=== PATIENT | female | born 1950 | race Caucasian/White ===

== ENCOUNTER → 2018-04-25 | Day surgery (SDC) | payer MEDICARE ==
[2018-03-12 11:39] LABS: BASOPHILS % 0.8 % (0.0-1.0); EOSINOPHILS # (AUTO) 0.1 (0.0-0.4); EOSINOPHILS % 1.5 % (0.0-6.0); HEMATOCRIT 41.2 % (34.2-44.1); HEMOGLOBIN 13.4 g/dL (12.0-16.0); LYMPHOCYTES # (AUTO) 1.9 (1.0-3.2); LYMPHOCYTES % 36.1 % (18.0-39.1); MEAN CORPUSCULAR HGB CONC 32.5 g/dL (31-35); MEAN CORPUSCULAR VOLUME 92.4 fL (81-99); MONOCYTES # (AUTO) 0.6 (0.2-0.8); MONOCYTES % 10.7 % (4.4-11.3); NEUTROPHILS # (AUTO) 2.7 (2.1-6.9); NEUTROPHILS % 50.7 % (38.7-80.0); PLATELET COUNT 232 x10e3/uL (140-360); RED BLOOD COUNT 4.46 x10e6/uL (3.6-5.1); RED CELL DISTRIBUTION WIDTH 16.7 % (11.7-14.4)
[2018-04-23 14:40] LABS: BASOPHILS % 0.5 % (0.0-1.0); EOSINOPHILS # (AUTO) 0.1 (0.0-0.4); EOSINOPHILS % 1.3 % (0.0-6.0); HEMATOCRIT 38.9 % (34.2-44.1); HEMOGLOBIN 13.1 g/dL (12.0-16.0); LYMPHOCYTES # (AUTO) 1.8 (1.0-3.2); MEAN CORPUSCULAR HGB CONC 33.7 g/dL (31-35); MEAN CORPUSCULAR VOLUME 94.9 fL (81-99); MONOCYTES # (AUTO) 0.6 (0.2-0.8); MONOCYTES % 8.3 % (4.4-11.3); NEUTROPHILS # (AUTO) 4.9 (2.1-6.9); NEUTROPHILS % 65.5 % (38.7-80.0); PLATELET COUNT 250 x10e3/uL (140-360)
[~2018-04-25] MED LIST: ASPIR 8181 MG PO; B-12 PO; CYCLOBENZAPRINE5 MG PO; EPHEDRINE SULFATE INJ 50 MG/10 ML SYR ONE; FENTANYL CITRATE/PF 100MCG/2 ML INJ ONE; GLYCOPYRROLATE INJ 1MG/ 5 ML SYR ONE; LEXAPRO10 MG PO; LIDOCAINE HCL 2% LOCAL INJ 5 ML SDV VIAL INJ ONE; LYRICA50 MG PO; METOPROLOL SUCC25 MG PO; MIDAZOLAM HCL 2 MG/2 ML VIAL ONE; MULTIVITAMIN PO; NEXIUM40 MG PO; OMEPRAZOLE20 MG PO; PROLIA60 MG/1 ML INJ; PROPOFOL IV EMULSION 10 MG/ML 20 ML VIAL ONE; ZOLPIDEM TARTRA10 MG PO
--- OUTSIDE RECORDS SUMMARY | 2018-04-25 06:20 | XMS REPORT ---
Author Author Shania Stock Organization [employer] Address Unknown Phone Unavailable Care Team Providers Care Ct Scan Technologist Name Role Phone Shania Stock CP Unavailable Allergies, Adverse Reactions, Alerts Substance Reaction Event Type Leflunomide ABD pain Drug Allergy Hydrocodone-Acetaminophen Info Not Available Drug Allergy morphine Info Not Available Non Drug Allergy NSAIDS anaphylaxis Non Drug Allergy codiene Info Not Available Non Drug Allergy sulfa Info Not Available Non Drug Allergy Problems Problem Type Condition Code Onset Dates Condition Status Assessment Other chronic pain G89.29 Active Assessment Osteoarthritis of knees, bilateral M17.0 Active Assessment Low back pain M54.5 Active Problem GERD without esophagitis K21.9 Active Problem Rheumatoid arthritis of multiple sites without rheumatoid factor M06.09 Active Problem Osteoporosis M81.0 Active Assessment High risk medication use Z79.899 Active Assessment Osteoarthritis of multiple joints M15.9 Active Problem Rheumatoid arthritis 714.0 Active Assessment Rheumatoid arthritis of multiple sites without rheumatoid factor M06.09 Active Assessment Anemia, unspecified D64.9 Active Assessment ESR raised R70.0 Active Assessment GERD without esophagitis K21.9 Active Assessment Osteoporosis M81.0 Active Medications Medication Code System Code Instructions Start Date End Date Status Dosage Omeprazole [facility] 73592171448 20 MG Orally Once a day Active 1 capsule Tramadol-Acetaminophen [facility] 29785328443 37.5-325 MG Orally bid prn Active 1 tab(s) Flexeril [facility] 15896222927 10MG orally daily prn July 17, 2017 Active take 1 tablet 3 times a day Tylenol ND 51467147303 325 MG Orally every 6 hrs Active 1 tablet as needed Multi Vitamins NDC 0 Oral Active 1 tab Alendronate Sodium [facility] 60756546393 70 MG Orally Once a week Active 1 tablet Ambien [facility] 82345522039 10 MG Orally Once a day Active 1 tablet at bedtime Lexapro [facility] 03133023628 10 MG Orally Once a day Active 1 tablet Alendronate Sodium [facility] 96806951729 70 MG Active 1 TABLET ONCE A WEEK ORALLY 30 DAY(S) Lyrica [facility] 57938527996 100 MG Orally tid Active 1 capsule Leflunomide [facility] 46712737734 20 MG Orally Once a day Active 1 tablet N40-Yojatf [facility] 50784474775 1 MG Orally Active not defined Flomax [facility] 53528450750 0.4 MG Orally Once a day Active 1 tab(s) Vital Signs Date/Time: Jan 18, 2017 Height 65 in Blood Pressure Diastolic 77 mm Hg Blood Pressure Systolic 130 mm Hg Weight 237 lbs Results No Known Results Summary Purpose eClinicalWorks Submission
--- OUTSIDE RECORDS SUMMARY | 2018-04-25 06:20 | XMS REPORT ---
Author Author Shania Stock [facility] eClinical[employer] Address Unknown Phone Unavailable Care Team Providers Care Mexican Food Machine Tender Name Role Phone Shania Stock CP Unavailable Allergies No Known Allergies Problems Problem Type Condition Code Onset Dates Condition Status Problem GERD without esophagitis K21.9 Active Problem Rheumatoid arthritis of multiple sites without rheumatoid factor M06.09 Active Problem Osteoporosis M81.0 Active Assessment Rheumatoid arthritis of multiple sites without rheumatoid factor M06.09 Active Assessment Stiffness of right wrist joint M25.631 Active Problem Rheumatoid arthritis 714.0 Active Assessment Pain in right wrist M25.531 Active Medications Medication Code System Code Instructions Start Date End Date Status Dosage Tramadol-Acetaminophen [facility] 84128526823 37.5-325 MG Orally bid prn Active 1 tab(s) Alendronate Sodium [facility] 08620152648 70 MG Active 1 TABLET ONCE A WEEK ORALLY 30 DAY(S) Q53-Wlluea [facility] 10072151008 1 MG Orally Active not defined Lexapro ND 51844316489 10 MG Orally Once a day Active 1 tablet Tylenol ND 18080463438 325 MG Orally every 6 hrs Active 1 tablet as needed Leflunomide ND 87045334522 20 MG Orally Once a day Active 1 tablet Lyrica ND 62733666529 100 MG Orally tid Active 1 capsule Omeprazole ND 90260980145 20 MG Orally Once a day Active 1 capsule Ambien [facility] 12724277695 10 MG Orally Once a day Active 1 tablet at bedtime Flomax ND 46734167477 0.4 MG Orally Once a day Active 1 tab(s) Flexeril ND 51418675814 10MG orally daily prn July 17, 2017 Active take 1 tablet 3 times a day Alendronate Sodium ND 90125743022 70 MG Orally Once a week Active 1 tablet Multi Vitamins NDC 0 Oral Active 1 tab Vital Signs Date/Time: Feb 02, 2017 Height 65 in Blood Pressure Diastolic 77 mm Hg Blood Pressure Systolic 130 mm Hg Weight 237 lbs Results Name Result Date Reference Range Unit Abnormality Flag ESR (SED-RATE) ----ESR (SED-RATE) 48 [id number] <26 mm/hr H CBC W/DIFF, PLATELET CT. ----IMMATURE GRANULOCYTES 0.2 [id number] 0.0-1.6 % ----MCV 85.5 04951353 80.0-100.0 fL ----HCT 32.9 05614775 34.5-46.5 % L ----BASOS 0.7 61223307 0.0-2.0 % ----MCHC 32.2 [id number] 29.0-35.0 gm/dL ----EOS 2.0 33176401 0.0-8.0 % ----MCH 27.5 [id number] 25.0-34.1 pg ----MONOS 11.6 56648311 0.0-13.0 % ----WBC 4.04 [id number] 3.66-11.99 x10(3)/uL ----MPV 10.5 76561860 8.2-11.9 fL ----HGB 10.6 63017121 11.5-15.6 gm/dL L ----PLATELET COUNT 282 49203395 144-400 x10(3)/uL ----RBC 3.85 48580193 3.60-5.50 x10(6)/uL ----LYMPHS 39.6 76409972 12.0-48.0 % ----RDW 14.6 09682364 10.9-16.9 % ----POLYS 45.9 18576823 36.0-78.0 % COMPREHENSIVE METABOLIC ----Alk Phos 72 44177330 40-156 U/L ----Bilirubin, Total 0.8 67250129 <1.2 mg/dL ----ALT 20 [id number] <33 U/L ----AST 30 92308086 <32 U/L ----BUN 11 54824390 8-23 mg/dL ----CO2 25 43770087 22-29 mmol/L ----Glucose 100 24013555 70-99 mg/dL H ----Chloride 104 [id number] 96-108 mmol/L ----Potassium 4.0 06056864 3.5-5.5 mmol/L ----Sodium 142 20170202 135-147 mmol/L ----e-GFR 84 75947556 >or=60 mL/min ----Creatinine 0.74 20170202 0.49-1.02 mg/dL ----Calcium 9.8 05174759 8.6-10.4 mg/dL ----e-GFR, 97 20170202 >or=60 mL/min ----Total Protein 6.9 01691613 5.9-8.4 g/dL ----Albumin 4.1 47330843 3.5-5.2 g/dL ----Globulin 2.8 [id number] 1.7-3.7 g/dL ----A/G Ratio 1.5 20170202 1.1-2.9 CRP (C-REACTIVE PROTEIN), SERUM ----CRP 0.3 [id number] <0.5 mg/dL Summary Purpose eClinicalWorks Submission
--- OUTSIDE RECORDS SUMMARY | 2018-04-25 06:20 | XMS REPORT ---
Author Author Shania Stock Organization [employer] Address Unknown Phone Unavailable Care Team Providers Care Bakery Machine Mechanic Supervisor Name Role Phone Shania Stock CP Unavailable Allergies No Known Allergies Problems Problem Type Condition Code Onset Dates Condition Status Problem GERD without esophagitis K21.9 Active Problem Rheumatoid arthritis of multiple sites without rheumatoid factor M06.09 Active Problem Osteoporosis M81.0 Active Assessment Stiffness of left wrist joint M25.632 Active Assessment Swelling of joint, wrist, left M25.432 Active Problem Rheumatoid arthritis 714.0 Active Assessment Pain in left wrist M25.532 Active Medications No Known Medications Vital Signs Date/Time: Feb 08, 2017 Height 65 in Blood Pressure Diastolic 77 mm Hg Blood Pressure Systolic 130 mm Hg Weight 237 lbs Results No Known Results Summary Purpose eClinicalWorks Submission
--- OUTSIDE RECORDS SUMMARY | 2018-04-25 06:20 | XMS REPORT ---
Author Author Shania Stock Organization [employer] Address Unknown Phone Unavailable Care Team Providers Care In Tube Conversion Technician Name Role Phone Shania Stock CP Unavailable Allergies, Adverse Reactions, Alerts Substance Reaction Event Type Lexapro tremors Drug Allergy Leflunomide ABD pain Drug Allergy Hydrocodone-Acetaminophen Info [...] Instructions Start Date End Date Status Dosage Lyrica [facility] [place] [place] [address]-54 100 MG Orally bid Active 1 capsule Omeprazole [facility] [place] [address]-27 20 MG Orally Once a day Active 1 capsule Tylenol [facility] [place] [address]-16 325 MG Orally every 6 hrs Active 1 tablet as needed Flomax [facility] [place] [address]-08 0.4 MG Orally Once a day Active 1 tab(s) Flexeril [facility] [place] [place] 00245611773 10MG orally daily prn Active take 1 tablet 3 times a day Leflunomide [facility] [place] [address]-11 20 MG Orally Once a day Active 1 tablet Multi Vitamins NDC 0 Oral Active 1 tab Ambien [facility] [place] [address]-39 10 MG Orally Once a day Active 1 tablet at bedtime Alendronate Sodium [facility] [place] [place] 01529376517 70 Orally Once a week Active 1 tablet Tramadol-Acetaminophen [facility] [place] [address]-19 37.5-325 MG Orally bid prn Active 1 tab(s) W33-Cvigyz [facility] [place] [address] 1 MG Orally Active not defined Alendronate Sodium [facility] [place] [address]-58 70 MG Orally Once a week Feb 13, 2017 Active 1 tablet Alendronate Sodium [facility] [place] 02338253919 70 MG Orally Once a week Active 1 tablet Vital Signs Date/Time: August 17, 2016 Height 65 in Blood Pressure Diastolic 74 mm Hg Blood Pressure Systolic 131 mm Hg Weight 232 lbs Results No Known Results Summary Purpose eClinicalWorks Submission
--- OUTSIDE RECORDS SUMMARY | 2018-04-25 06:20 | XMS REPORT ---
Author Author Shania Stock Organization [employer] Address Unknown Phone Unavailable Care Team Providers Care Metal Flooring Installer Name Role Phone Shania Stock CP Unavailable [...] Start Date End Date Status Dosage Lyrica [facility] 93726156012 100 MG Orally tid Active 1 capsule Leflunomide [facility] 42681709347 20 MG Orally Once a day Active 1 tablet Lexapro [facility] 16391487461 10 MG Orally Once a day Active 1 tablet Omeprazole [facility] 94173012061 20 MG Orally Once a day Active 1 capsule Alendronate Sodium [facility] 77906618350 70 MG Active 1 TABLET ONCE A WEEK ORALLY 30 DAY(S) Flomax [facility] 85722691553 0.4 MG Orally Once a day Active 1 tab(s) Lyrica [facility] 13483774829 100 Active TAKE ONE CAPSULE BY MOUTH THREE TIMES DAILY Multi Vitamins NDC 0 Oral Active 1 tab Ambien [facility] 49854928087 10 MG Orally Once a day Active 1 tablet at bedtime V58-Sypwoi [facility] 14918736424 1 MG Orally Active not defined Alendronate Sodium [facility] 24597332466 70 MG Orally Once a week Active 1 tablet Flexeril [facility] 07885092509 10MG Active TAKE 1 TABLET 3 TIMES A DAY DAILY PRN ORALLY 90 DAYS Tramadol-Acetaminophen [facility] 73185241418 37.5-325 MG Orally bid prn Mar 23, 2018 Active 1 tab(s) Flexeril [facility] 25474208011 10MG orally daily prn Active take 1 tablet 3 times a day Tylenol [facility] 17708816994 325 MG Orally every 6 hrs Active 1 tablet as needed Vital Signs Date/Time: September 24, 2017 Height 65 in Blood Pressure Diastolic 80 mm Hg Blood Pressure Systolic 154 mm Hg Weight 243.0 lbs Results No Known Results Summary Purpose eClinicalWorks Submission
--- OUTSIDE RECORDS SUMMARY | 2018-04-25 06:20 | XMS REPORT ---
Author Author Shania Stock Organization [employer] Address Unknown Phone Unavailable Care Team Providers Care Pari Mutuel Clerk Name Role Phone Shania Stock CP Unavailable [...] Instructions Start Date End Date Status Dosage Flexeril [facility] 00222569688 10MG Active TAKE 1 TABLET 3 TIMES A DAY DAILY PRN ORALLY 90 DAYS Multi Vitamins NDC 0 Oral Active 1 tab I14-Jioqip [facility] 85064417478 1 MG Orally Active not defined Flomax [facility] 96784837537 0.4 MG Orally Once a day Active 1 tab(s) Alendronate Sodium [facility] 76649684157 70 MG Active 1 TABLET ONCE A WEEK ORALLY 30 DAY(S) Lyrica [facility] 47724830041 100 MG Orally tid Active 1 capsule Omeprazole [facility] 13734175976 20 MG Orally Once a day Active 1 capsule Leflunomide [facility] 73257080290 20 MG Orally Once a day Active 1 tablet Tylenol [facility] 02292065755 325 MG Orally every 6 hrs Active 1 tablet as needed Ambien [facility] 98220493956 10 MG Orally Once a day Active 1 tablet at bedtime Alendronate Sodium [facility] 13512409279 70 MG Orally Once a week Active 1 tablet Flexeril [facility] 49739272493 10MG orally daily prn Active take 1 tablet 3 times a day Lexapro [facility] 99615008782 10 MG Orally Once a day Active 1 tablet Tramadol-Acetaminophen [facility] 70592433339 37.5-325 MG Orally bid prn Active 1 tab(s) Vital Signs Date/Time: May 24, 2017 Height 65 in Blood Pressure Diastolic 68 mm Hg Blood Pressure Systolic 125 mm Hg Weight 240 lbs Results No Known Results Summary Purpose eClinicalWorks Submission
--- OUTSIDE RECORDS SUMMARY | 2018-04-25 06:20 | XMS REPORT ---
Author Author Shania Stock Organization [employer] Address Unknown Phone Unavailable Care Team Providers Care Electronic Scale Assembler And Tester Name Role Phone Shania Stock CP Unavailable Allergies No Known Allergies Problems Problem Type Condition Code Onset Dates Condition Status Problem GERD without esophagitis K21.9 Active Problem Rheumatoid arthritis of multiple sites without rheumatoid factor M06.09 Active Problem Osteoporosis M81.0 Active Problem Rheumatoid arthritis 714.0 Active Assessment Low back pain M54.5 Active Medications Medication Code System Code Instructions Start Date End Date Status Dosage Flexeril ND 55820036763 10MG orally daily prn Inactive take 1 tablet 3 times a day Tizanidine HCl NDC 28208898165 4 MG Orally bedtime Nov 10, 2017 Mar 10, 2018 Active 1 tablet as needed Flexeril ND 12803285481 10MG Inactive TAKE 1 TABLET 3 TIMES A DAY DAILY PRN ORALLY 90 DAYS Results No Known Results Summary Purpose eClinicalWorks Submission
--- OUTSIDE RECORDS SUMMARY | 2018-04-25 06:20 | XMS REPORT ---
Author Author Shania Stock Organization [employer] Address Unknown Phone Unavailable Care Team Providers Care Real Estate Office Manager Name Role Phone Shania Stock CP Unavailable Allergies No Known Allergies Problems Problem Type Condition Code Onset Dates Condition Status Problem GERD without esophagitis K21.9 Active Problem Rheumatoid arthritis of multiple sites without rheumatoid factor M06.09 Active Problem Osteoporosis M81.0 Active Problem Rheumatoid arthritis 714.0 Active Medications No Known Medications Results No Known Results Summary Purpose eClinicalWorks Submission
--- OUTSIDE RECORDS SUMMARY | 2018-04-25 06:20 | XMS REPORT ---
Author Author Shania Stock Organization [employer] Address Unknown Phone Unavailable Care Team Providers Care Bias Cutter Name Role Phone Shania Stock CP Unavailable [...] Instructions Start Date End Date Status Dosage Alendronate Sodium [facility] 55821820884 70 Orally Once a week Active 1 tablet Leflunomide [facility] [address]-23 20 MG Orally Once a day Active 1 tablet Tylenol [facility] [address]-21 325 MG Orally every 6 hrs Active 1 tablet as needed F50-Jrqgcp [facility] [address] 1 MG Orally Active not defined Tramadol-Acetaminophen [facility] [address]-07 37.5-325 MG Orally bid prn Active 1 tab(s) Flomax [facility] [address]-99 0.4 MG Orally Once a day Active 1 tab(s) Omeprazole [facility] [address]-66 20 MG Orally Once a day Active 1 capsule Alendronate Sodium [facility] 48747600740 70 MG Orally Once a week Active 1 tablet Flexeril [facility] 29169616839 10MG orally daily prn Active take 1 tablet 3 times a day Alendronate Sodium [facility] [address]-93 70 MG Orally Once a week Active 1 tablet Multi Vitamins ND 0 Oral Active 1 tab Lyrica [facility] [address]-09 100 MG Orally bid Active 1 capsule Ambien [facility] [address]-23 10 MG Orally Once a day Active 1 tablet at bedtime Vital Signs Date/Time: September 14, 2016 Height 65 in Blood Pressure Diastolic 74 mm Hg Blood Pressure Systolic 134 mm Hg Weight 233 lbs Results No Known Results Summary Purpose eClinicalWorks Submission
--- OUTSIDE RECORDS SUMMARY | 2018-04-25 06:20 | XMS REPORT | Continuity of Care Document ---
Author Author [facility] Interface Address Unknown Phone Unavailable Problems Problem Status Onset Date Classification Date Reported Comments Source Other chronic pain Active Diagnosis 09/25/2017 Shania Najam Osteoarthritis of knees, bilateral Active Diagnosis 09/25/2017 Shania Najam Low back pain Active Diagnosis 11/11/2017 Shania Najam GERD without esophagitis Active Problem 11/20/2017 Shania Najam Rheumatoid arthritis of multiple sites without rheumatoid factor Active Problem 11/20/2017 Shania Najam Osteoporosis Active Problem 11/20/2017 Shania Najam High risk medication use Active Diagnosis 09/25/2017 Shania Najam Osteoarthritis of multiple joints Active Diagnosis 09/25/2017 Shania Najam Rheumatoid arthritis Active Problem 11/20/2017 Shania Najam Anemia, unspecified Active Diagnosis 09/25/2017 Shania Najam ESR raised Active Diagnosis 09/25/2017 Shania Najam Stiffness of left wrist joint Active Diagnosis 02/19/2017 Shania Najam Swelling of joint, wrist, left Active Diagnosis 02/19/2017 Shania Najam Pain in left wrist Active Diagnosis 02/19/2017 Shania Najam Stiffness of right wrist joint Active Diagnosis 02/07/2017 Shania Najam Pain in right wrist Active Diagnosis 02/07/2017 Shania Najam Contact 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 to tuberculosis Active Problem 04/06/2014 Shania Najam Swelling of limb Active Diagnosis 02/18/2014 Shania Najam Pain in joint, hand Active Diagnosis 10/22/2014 Shania Najam Stiffness of joint, not elsewhere classified, hand Active Diagnosis 02/18/2014 Shania Nafeleciam monitorring of highrisk meds Active Diagnosis 10/22/2014 Shania Najam Unspecified visual disturbance Active Diagnosis 09/17/2014 Shania Najam Counseling NOS Active Diagnosis 10/22/2014 Shania Najam myalgia and myositis Active Diagnosis 10/22/2014 Shania Najam Generalized osteoarthrosis, involving multiple sites Active Diagnosis 10/22/2014 Shania Stock Asymptomatic postmenopausal status (natural) Active Diagnosis 10/22/2014 Shania Stock Lumbago Active Diagnosis 10/22/2014 Shania Stock Hand pain, right Active Diagnosis 05/05/2015 Shania Stock Hand pain, left Active Diagnosis 05/05/2015 Shania Stock Chronic pain Active Diagnosis 03/02/2015 Shania Stock Pain, joint, hand, right Active Diagnosis 03/02/2015 Shania Stock Renal and ureteric calculus Active Diagnosis 03/02/2015 Shania Stock Screening for osteoporosis Active Diagnosis 03/02/2015 Shania Stock Pain, joint, hand, left Active Diagnosis 03/02/2015 Shania Stock Mouth sores Active Diagnosis 09/14/2015 Shania Stock Menopausal and perimenopausal disorder Active Diagnosis 02/04/2016 Shania Brunildagenaro Medications Medication Details Route Status Patient Instructions Ordering Provider Order Date Source Tramadol-Acetaminophen 1 tab(s) Orally Active 37.5-325 MG Orally bid prn [facility] 03/23/2018 Shania Stock Tizanidine HCl 1 tablet as needed Orally Active 4 MG Orally bedtime [facility] 11/10/2017 Shania Stock Flexeril take 1 tablet 3 times a day orally Active 10MG orally daily prn [facility] 07/17/2017 Shania Stock Alendronate Sodium 1 tablet Orally Active 70 MG Orally Once a week [facility] 02/13/2017 Shania Stock Flexeril take 1 tablet 3 times a day orally Active 10MG orally daily prn [facility] 05/29/2016 Shania Stock Tramadol-Acetaminophen 1 tab(s) Orally Active 37.5-325 MG Orally bid prn [facility] 05/29/2016 Shania Stock Alendronate Sodium 1 tablet Orally Active 70 MG Orally Once a week [facility] 03/22/2016 Shania Stock Leflunomide 1 tablet Orally Active 20 MG Orally Once a day [facility] 02/03/2016 Shania Stock Orencia 1 ml Subcutaneous No Longer Active 125 MG/ML Subcutaneous once weekly [facility] 02/03/2016 Shania Stock Orencia 1 ml Subcutaneous Active 125 MG/ML Subcutaneous once weekly [facility] 12/04/2015 Shania Najam Flexeril TAKE 1 TABLET 3 TIMES A DAY orally Active 10MG orally daily prn [facility] 11/03/2015 Shania Nagenaro Nystatin 2 teaspoons Mouth/Throat Active 181320 UNIT/ML Mouth/Throat Three times a day [facility] 08/31/2015 Shania Najaciarra Flexeril TAKE 1 TABLET 3 TIMES A DAY orally Active 10MG orally daily prn [facility] 08/04/2015 Shania Nagenaro Orencia 1 ml Subcutaneous Active 125 MG/ML Subcutaneous once weekly [facility] 05/04/2015 Shania Nagenaro Plaquenil 2 tabs Orally No Longer Active 200 MG Orally Once a day [facility] 11/21/2014 Shania Najam Flexeril 1 tab(s) orally Active 10 mg orally tid [facility] 11/21/2014 Shania Najam Tramadol-Acetaminophen 1 tab(s) Orally Active 37.5-325 MG Orally every 8 hrs as needed [facility] 09/16/2014 Shania Najam Lyrica 1 capsule Orally Active 50 MG Orally Twice a day [facility] 09/16/2014 Shania Nafeleciam Folic Acid 1 tablet Orally No Longer Active 1 mg Orally Once a day [facility] 03/02/2014 Shania Najam Lyrica 1 capsule Orally Active 100 MG Orally bid Naja Shania Najam Omeprazole 1 capsule Orally Active 20 MG Orally Once a day Najam Shania Najam Tylenol 1 tablet as needed Orally Active 325 MG [facility] Flomax 1 tab(s) Orally Active 0.4 MG Orally Once a day Naja Shania Najam Flexeril take 1 tablet 3 times a day orally Active 10MG orally daily prn Najam Shania Najam Leflunomide 1 tablet Orally Active 20 MG Orally Once a day Najam Shania Najam Multi Vitamins 1 tab Oral Active Oral Najam Shania Najam Ambien 1 tablet at bedtime Orally Active 10 MG Orally Once a day Najam Shania Najam Alendronate Sodium 1 tablet Orally Active 70 Orally Once a week Najam Shania Najam Tramadol-Acetaminophen 1 tab(s) Orally Active 37.5-325 MG Orally bid prn Najam Shania Najam [id number] not defined Orally Active 1 MG Orally Najam Shania Najam Alendronate Sodium 1 TABLET ONCE A WEEK ORALLY 30 DAY(S) NA Active 70 MG Najam Shania Najam Omeprazole 1 capsule Orally Active 20 MG Orally Once a day Najam Shania Najam Tramadol-Acetaminophen 1 tab(s) Orally Active 37.5-325 MG Orally bid prn Najam Shania Najam Tylenol 1 tablet as needed Orally Active 325 MG Orally every 6 hrs Najam Shania Najam Alendronate Sodium 1 tablet Orally Active 70 MG Orally Once a week Najam Shania Najam Ambien 1 tablet at bedtime Orally Active 10 MG Orally Once a day Najam Shania Najam Lexapro 1 tablet Orally Active 10 MG Orally Once a day Najam Shania Najam Lyrica 1 capsule Orally Active 100 MG Orally tid Najam Shania Najam Leflunomide 1 tablet Orally Active 20 MG Orally Once a day Najam Shania Najam [id number] not defined Orally Active 1 MG Orally Najam Shania Najam Flomax 1 tab(s) Orally Active 0.4 MG Orally Once a day Najam Shania Najam Flexeril TAKE 1 TABLET 3 TIMES A DAY DAILY PRN ORALLY 90 DAYS NA Active 10MG Najam Shania Najam Alendronate Sodium 1 tablet Orally Active 70 MG Orally Once a week Najam Shania Najam Lyrica TAKE ONE CAPSULE BY MOUTH THREE TIMES DAILY NA Active 100 Najam Shania Najam Methotrexate Sodium INJECT 0.4 ML UNDER THE SKIN ONCE A WEEK NA No Longer Active 25 Najam Shania Najam Ambien 1 tablet at bedtime Orally Active 5 MG Orally Once a day Najam Shania Najam Methotrexate Sodium (PF) 0.4 ml subcutaneously No Longer Active 25 MG/ML subcutaneously once weekly Najam Shania Najam [employer] Unknown Orally Active Orally Najam Shania Najam Viactiv 1 tablet with a meal Orally Active 500-500-40 MG-UNT-MCG Orally Once a day Najam Shania Najam Lexapro 1 tab(s) Orally Active 20 mg Orally Once a day Najam Shania Najam Multi Vitamins 1 tab Oral Active Oral Najam Shania Najam Tramadol HCl 1 tablet as needed Orally No Longer Active 50 MG Orally every 6 hrs Nafeleciam Shania Nafeleciam Flexeril Unknown NA Active Najam Shania Nafeleciam Plaquenil 1 tablet with food or milk Orally Active 200 MG Orally Once a day Najam Shania Najam Lyrica 1 capsule Orally Active 50 MG Orally daily Nafeleciam Shania Nafeleciam Tramadol-Acetaminophen 1 tab(s) Orally Active 37.5-325 MG Orally every 8 hrs as needed Najam Shania Najam Plaquenil TAKE 2 TABLETS ONCE DAILY NA Active 200MG Najam Shania Najam Lyrica TAKE 1 CAPSULE BY MOUTH DAILY orally Active 50 orally daily Najam Shania Najam Orencia 1 ml Subcutaneous Active 125 MG/ML Subcutaneous once weekly Najam Shania Najam Orencia INJECT 1 ML (125 MG) SUBCUTANEOUSLY ONCE A WEEK. REFRIGERATE. ALLOW SYRINGE TO WARM TO ROOM TEMPERATURE FOR 30 MIN PRIOR TO INJECTION. NA Active 125 MG/ML Najam Shania Najam Allergies, Adverse Reactions, Alerts Substance Category Reaction Severity Reaction type Status Date Reported Comments Source Lexapro Adverse Reaction tremors Adverse Reaction Active 09/14/2016 Shania Najam Leflunomide Adverse Reaction ABD pain Adverse Reaction Active 09/24/2017 Shania Najam Hydrocodone-Acetaminophen Adverse Reaction Info Not Available Adverse Reaction Active 09/24/2017 Shania Najam morphine Adverse Reaction Info Not Available Adverse Reaction Active 09/24/2017 Shania Najam NSAIDS Adverse Reaction anaphylaxis Adverse Reaction Active 09/24/2017 Shania Najam codiene Adverse Reaction Info Not Available Adverse Reaction Active 09/24/2017 Shania Najam sulfa Adverse Reaction Info Not Available Adverse Reaction Active 09/24/2017 Shania Najam Immunizations Immunization Date Given Site Status Last Updated Comments Source Results Order Name Results Value Reference Range Date Interpretation Comments Source Vital Signs Vital Sign Value Date Comments Source Height 65 09/24/2017 Shania Najam Diastolic (mm Hg) 80 09/24/2017 Shania Najam Systolic (mm Hg) 154 09/24/2017 Shania Najam Weight 243.0 09/24/2017 Shania Najam Height 65 05/24/2017 Shania Najam Diastolic (mm Hg) 68 05/24/2017 Shania Najam Systolic (mm Hg) 125 05/24/2017 Shania Najam Weight 240 05/24/2017 Shania Najam Height 65 02/08/2017 Shania Najam Diastolic (mm Hg) 77 02/08/2017 Shania Najam Systolic (mm Hg) 130 02/08/2017 Shania Najam Weight 237 02/08/2017 Shania Najam Height 65 02/02/2017 Shania Najam Diastolic (mm Hg) 77 02/02/2017 Shania Najam Systolic (mm Hg) 130 02/02/2017 Shania Najam Weight 237 02/02/2017 Shania Najam Height 65 01/18/2017 Shania Najam Diastolic (mm Hg) 77 01/18/2017 Shania Najam Systolic (mm Hg) 130 01/18/2017 Shania Najam Weight 237 01/18/2017 Shania Najam Height 65 09/14/2016 Shania Najam Diastolic (mm Hg) 74 09/14/2016 Shania Najam Systolic (mm Hg) 134 09/14/2016 Shania Najam Weight 233 09/14/2016 Shania Najam Height 65 08/17/2016 Shania Najam Diastolic (mm Hg) 74 08/17/2016 Shania Najam Systolic (mm Hg) 131 08/17/2016 Shania Najam Weight 232 08/17/2016 Shania Najam Height 65 04/20/2016 Shania Najam Diastolic (mm Hg) 82 04/20/2016 Shania Najam Systolic (mm Hg) 134 04/20/2016 Shania Najam Weight 236.4 04/20/2016 Shania Najam Height 65 03/22/2016 Shania Najam Diastolic (mm Hg) 73 03/22/2016 Shania Najam Systolic (mm Hg) 112 03/22/2016 Shania Najam Weight 235.8 03/22/2016 Shania Najam Weight 241.6 02/03/2016 Shania Najam Height 65 02/03/2016 Shania Najam Height 65 12/01/2015 Shania Najam Diastolic (mm Hg) 77 12/01/2015 Shania Najam Systolic (mm Hg) 123 12/01/2015 Shania Najam Weight 239.8 12/01/2015 Shania Najam Height 65 08/31/2015 Shania Najam Diastolic (mm Hg) 83 08/31/2015 Shanai Najam Systolic (mm Hg) 141 08/31/2015 Shania Najam Weight 237.4 08/31/2015 Shania Najam Height 65 06/01/2015 Shania Najam Diastolic (mm Hg) 80 06/01/2015 Shania Najam Systolic (mm Hg) 131 06/01/2015 Shania Najam Weight 234.2 06/01/2015 Shania Najam Height 65 05/04/2015 Shania Najam Diastolic (mm Hg) 81 05/04/2015 Shania Najam Systolic (mm Hg) 149 05/04/2015 Shania Najam Weight 232.8 05/04/2015 Shania Najam Height 65 03/01/2015 Shania Najam Diastolic (mm Hg) 78 03/01/2015 Shania Najam Systolic (mm Hg) 125 03/01/2015 Shania Najam Weight 232.8 03/01/2015 Shania Najam Height 65 10/21/2014 Shania Najam Diastolic (mm Hg) 73 10/21/2014 Shania Najam Systolic (mm Hg) 136 10/21/2014 Shania Najam Weight 242.2 10/21/2014 Shania Najam Height 65 09/16/2014 Shania Najam Diastolic (mm Hg) 76 09/16/2014 Shania Najam Systolic (mm Hg) 134 09/16/2014 Shania Najam Weight 240 09/16/2014 Shania Najam Height 65 04/02/2014 Shania Najam Diastolic (mm Hg) 83 04/02/2014 Shania Najam Systolic (mm Hg) 148 04/02/2014 Shania Najam Weight 245 04/02/2014 Shania Najam Height 65 03/02/2014 Shania Najam Diastolic (mm Hg) 75 03/02/2014 Shania Najam Systolic (mm Hg) 139 03/02/2014 Shania Najam Weight 250 03/02/2014 Shania Najam Height 65 02/03/2014 Shania Najam Diastolic (mm Hg) 69 02/03/2014 Shania Najam Systolic (mm Hg) 141 02/03/2014 Shania Najam Weight 248 02/03/2014 Shania Stock Encounters Location Location Details Encounter Type Encounter Number Reason For Visit Attending Provider ADM Date DC Date Status Source [facility] [id number] 02/03/2014 02/03/2014 [facility] [id number] 02/03/2014 02/03/2014 [facility] RA [id number] 02/03/2014 02/03/2014 [facility] RA [id number] 02/03/2014 02/03/2014 [facility] RA [id number] 02/03/2014 02/03/2014 [facility] RA [id number] 02/03/2014 02/03/2014 [facility] RA [id number] 02/03/2014 02/03/2014 [facility] RA [id number] 02/03/2014 02/03/2014 [facility] RA [id number] 02/03/2014 02/03/2014 [facility] RA [id number] 02/03/2014 02/03/2014 [facility] RA [id number] 02/03/2014 02/03/2014 [facility] RA [id number] 02/03/2014 02/03/2014 [facility] RA [id number] 02/03/2014 02/03/2014 [facility] RA [id number] 02/03/2014 02/03/2014 [facility] RA [id number] 02/03/2014 02/03/2014 [facility] [id number] 02/03/2014 02/03/2014 [facility] RA [id number] 02/03/2014 02/03/2014 [facility] RA [id number] 02/03/2014 02/03/2014 [facility] RA [id number] 02/03/2014 02/03/2014 [facility] RA [id number] 02/03/2014 02/03/2014 [facility] RA [id number] 02/03/2014 02/03/2014 [facility] RA [id number] 02/03/2014 02/03/2014 [facility] RA [id number] 02/03/2014 02/03/2014 [facility] [id number] 02/03/2014 02/03/2014 [facility] RA [id number] 02/03/2014 02/03/2014 [facility] RA [id number] 02/03/2014 02/03/2014 [facility] RA [id number] 02/03/2014 02/03/2014 [facility] Left Wrist MRI [id number] 02/11/2014 02/11/2014 [facility] Left Wrist MRI [id number] 02/11/2014 02/11/2014 [facility] Left Wrist MRI [id number] 02/11/2014 02/11/2014 [facility] Left Wrist MRI [id number] 02/11/2014 02/11/2014 [facility] Left Wrist MRI [id number] 02/11/2014 02/11/2014 [facility] Left Wrist MRI [id number] 02/11/2014 02/11/2014 [facility] Left Wrist MRI [id number] 02/11/2014 02/11/2014 [facility] Left Wrist MRI [id number] 02/11/2014 02/11/2014 [facility] Left Wrist MRI [id number] 02/11/2014 02/11/2014 [facility] Left Wrist MRI [id number] 02/11/2014 02/11/2014 [facility] Left Wrist MRI [id number] 02/11/2014 02/11/2014 [facility] Left Wrist MRI [id number] 02/11/2014 02/11/2014 [facility] Left Wrist MRI [id number] 02/11/2014 02/11/2014 [facility] Left Wrist MRI [id number] 02/11/2014 02/11/2014 [facility] Left Wrist MRI [id number] 02/11/2014 02/11/2014 [facility] Left Wrist MRI [id number] 02/11/2014 02/11/2014 [facility] Left Wrist MRI [id number] 02/11/2014 02/11/2014 [facility] Left Wrist MRI [id number] 02/11/2014 02/11/2014 [facility] Left Wrist MRI [id number] 02/11/2014 02/11/2014 [facility] Left Wrist MRI [id number] 02/11/2014 02/11/2014 [facility] Left Wrist MRI [id number] 02/11/2014 02/11/2014 [facility] Left Wrist MRI [id number] 02/11/2014 02/11/2014 [facility] Left Wrist MRI [id number] 02/11/2014 02/11/2014 [facility] Left Wrist MRI [id number] 02/11/2014 02/11/2014 [facility] Left Wrist MRI [id number] 02/11/2014 02/11/2014 [facility] Left Wrist MRI [id number] 02/11/2014 02/11/2014 [facility] Left Wrist MRI [id number] 02/11/2014 02/11/2014 [facility] Right Wrist MRI [id number] 02/12/2014 02/12/2014 [facility] Right Wrist MRI [id number] 02/12/2014 02/12/2014 [facility] Right Wrist MRI [id number] 02/12/2014 02/12/2014 [facility] Right Wrist MRI [id number] 02/12/2014 02/12/2014 [facility] Right Wrist MRI [id number] 02/12/2014 02/12/2014 [facility] Right Wrist MRI [id number] 02/12/2014 02/12/2014 [facility] Right Wrist MRI [id number] 02/12/2014 02/12/2014 [facility] Right Wrist MRI [id number] 02/12/2014 02/12/2014 [facility] Right Wrist MRI [id number] 02/12/2014 02/12/2014 [facility] Right Wrist MRI [id number] 02/12/2014 02/12/2014 [facility] Right Wrist MRI [id number] 02/12/2014 02/12/2014 [facility] Right Wrist MRI [id number] 02/12/2014 02/12/2014 [facility] Right Wrist MRI [id number] 02/12/2014 02/12/2014 [facility] Right Wrist MRI [id number] 02/12/2014 02/12/2014 [facility] Right Wrist MRI [id number] 02/12/2014 02/12/2014 [facility] Right Wrist MRI [id number] 02/12/2014 02/12/2014 [facility] Right Wrist MRI [id number] 02/12/2014 02/12/2014 [facility] Right Wrist MRI [id number] 02/12/2014 02/12/2014 [facility] Right Wrist MRI [id number] 02/12/2014 02/12/2014 [facility] Right Wrist MRI [id number] 02/12/2014 02/12/2014 [facility] Right Wrist MRI [id number] 02/12/2014 02/12/2014 [facility] Right Wrist MRI [id number] 02/12/2014 02/12/2014 [facility] Right Wrist MRI [id number] 02/12/2014 02/12/2014 [facility] Right Wrist MRI [id number] 02/12/2014 02/12/2014 [facility] Right Wrist MRI [id number] 02/12/2014 02/12/2014 [facility] Follow Up Lab & MRI Results [id number] 03/02/2014 03/02/2014 [facility] Follow Up Lab & MRI Results [id number] 03/02/2014 03/02/2014 [facility] Follow Up Lab & MRI Results [id number] 03/02/2014 03/02/2014 [facility] Follow Up Lab & MRI Results [id number] 03/02/2014 03/02/2014 [facility] Follow Up Lab & MRI Results [id number] 03/02/2014 03/02/2014 [facility] Follow Up Lab & MRI Results [id number] 03/02/2014 03/02/2014 Shania [facility] Follow Up Lab & MRI Results [id number] 03/02/2014 03/02/2014 Shania [facility] Follow Up Lab & MRI Results [id number] 03/02/2014 03/02/2014 Shania [facility] Follow Up Lab & MRI Results [id number] 03/02/2014 03/02/2014 [facility] Follow Up Lab & MRI Results [id number] 03/02/2014 03/02/2014 [facility] Follow Up Lab & MRI Results [id number] 03/02/2014 03/02/2014 Shania [facility] Follow Up Lab & MRI Results [id number] 03/02/2014 03/02/2014 [facility] Follow Up Lab & MRI Results [id number] 03/02/2014 03/02/2014 [facility] Lab & MRI Results [id number] 03/02/2014 03/02/2014 [facility] Follow Up Lab & MRI Results [id number] 03/02/2014 03/02/2014 [facility] Up Lab & MRI Results [id number] 03/02/2014 03/02/2014 [facility] Follow Up Lab & MRI Results [id number] 03/02/2014 03/02/2014 [facility] Follow Up Lab & MRI Results [id number] 03/02/2014 03/02/2014 [facility] Follow Up Lab & MRI Results [id number] 03/02/2014 03/02/2014 [facility] Follow Up Lab & MRI Results [id number] 03/02/2014 03/02/2014 [facility] Follow Up Lab & MRI Results [id number] 03/02/2014 03/02/2014 [facility] Follow Up Lab & MRI Results [id number] 03/02/2014 03/02/2014 [facility] Follow Up Lab & MRI Results [id number] 03/02/2014 03/02/2014 [facility] Follow Up Lab & MRI Results [id number] 03/02/2014 03/02/2014 [facility] Iron testing [id number] 03/11/2014 03/11/2014 [facility] Iron testing [id number] 03/11/2014 03/11/2014 [facility] Iron testing [id number] 03/11/2014 03/11/2014 [facility] Iron testing [id number] 03/11/2014 03/11/2014 [facility] Iron testing [id number] 03/11/2014 03/11/2014 [facility] Iron testing [id number] 03/11/2014 03/11/2014 [facility] Iron testing [id number] 03/11/2014 03/11/2014 [facility] Iron testing [id number] 03/11/2014 03/11/2014 [facility] Iron testing [id number] 03/11/2014 03/11/2014 [facility] Iron testing [id number] 03/11/2014 03/11/2014 [facility] Iron testing [id number] 03/11/2014 03/11/2014 [facility] Iron testing [id number] 03/11/2014 03/11/[address] [facility] Iron testing [id number] 03/11/2014 03/11/[address] [facility] Iron testing [id number] 03/11/2014 03/11/[address] [facility] Iron testing [id number] 03/11/2014 03/11/2014 [facility] Iron testing [id number] 03/11/2014 03/11/2014 [facility] Iron testing [id number] 03/11/2014 03/11/2014 [facility] Iron testing [id number] 03/11/2014 03/11/2014 [facility] Iron testing [id number] 03/11/2014 03/11/2014 [facility] Iron testing [id number]-[id number] 03/11/2014 03/11/2014 [facility] Iron testing [id number] 03/11/2014 03/11/2014 [facility] Iron testing [id number] 03/11/2014 03/11/2014 [facility] Iron testing [id number] 03/11/2014 03/11/2014 [facility] Iron testing [id number] 03/11/2014 03/11/2014 [facility] lab results follow up [id number] 04/02/2014 04/02/2014 [facility] lab results follow up [id number] 04/02/2014 04/02/2014 [facility] lab results follow up [id number] 04/02/2014 04/02/2014 [facility] lab results follow up [id number] 04/02/2014 04/02/2014 [facility] lab results follow up [id number] 04/02/2014 04/02/2014 [facility] lab results follow up [id number] 04/02/2014 04/02/2014 [facility] lab results follow up [id number] 04/02/2014 04/02/2014 [facility] lab results follow up [id number] 04/02/2014 04/02/2014 [facility] lab results follow up [id number] 04/02/2014 04/02/2014 [facility] lab results follow up [id number] 04/02/2014 04/02/2014 [facility] lab results follow up [id number] 04/02/2014 04/02/2014 [facility] lab results follow up [id number] 04/02/2014 04/02/2014 [facility] lab results follow up [id number] 04/02/2014 04/02/2014 [facility] lab results follow up [id number] 04/02/2014 04/02/2014 [facility] lab results follow up [id number] 04/02/2014 04/02/2014 [facility] lab results follow up [id number] 04/02/2014 04/02/2014 [facility] lab results follow up [id number] 04/02/2014 04/02/2014 [facility] lab results follow up [id number] 04/02/2014 04/02/2014 [facility] lab results follow up [id number] 04/02/2014 04/02/2014 [facility] lab results follow up [id number] 04/02/2014 04/02/2014 [facility] lab results follow up [id number] 04/02/2014 04/02/2014 [facility] lab results follow up [id number] 04/02/2014 04/02/2014 [facility] follow up [id number] 05/25/2014 05/25/2014 [facility] follow up [id number] 05/25/2014 05/25/2014 [facility] follow up [id number] 05/25/2014 05/25/2014 [facility] follow up [id number] 05/25/2014 05/25/2014 [facility] follow up [id number] 05/25/2014 05/25/2014 [facility] follow up [id number] 05/25/2014 05/25/2014 [facility] follow up [id number] 05/25/2014 05/25/2014 [facility] follow up [id number] 05/25/2014 05/25/2014 [facility] follow up [id number] 05/25/2014 05/25/2014 [facility] follow up [id number] 05/25/2014 05/25/2014 [facility] follow up [id number] 05/25/2014 05/25/2014 [facility] follow up [id number] 05/25/2014 05/25/2014 [facility] follow up [id number] 05/25/2014 05/25/2014 [facility] follow up [id number] 05/25/2014 05/25/2014 [facility] follow up [id number] 05/25/2014 05/25/2014 [facility] follow up [id number] 05/25/2014 05/25/2014 [facility] follow up [id number] 05/25/2014 05/25/2014 [facility] follow up [id number] 05/25/2014 05/25/2014 [facility] follow up [id number] 05/25/2014 05/25/2014 [facility] follow up [id number] 05/25/2014 05/25/2014 [facility] follow up [id number] 05/25/2014 05/25/2014 [facility] Follow up 3 Month [id number] 09/16/2014 09/16/2014 [facility] Follow up 3 Month [id number] 09/16/2014 09/16/2014 [facility] Follow up 3 Month [id number] 09/16/2014 09/16/2014 [facility] Follow up 3 Month [id number] 09/16/2014 09/16/2014 [facility] Follow up 3 Month [id number] 09/16/2014 09/16/2014 [facility] Follow up 3 Month [id number] 09/16/2014 09/16/2014 [facility] Follow up 3 Month [id number] 09/16/2014 09/16/2014 [facility] Follow up 3 Month [id number] 09/16/2014 09/16/2014 [facility] Follow up 3 Month [id number] 09/16/2014 09/16/2014 [facility] Follow up 3 Month [id number] 09/16/2014 09/16/2014 [facility] Follow up 3 Month [id number] 09/16/2014 09/16/2014 [facility] Follow up 3 Month [id number] 09/16/2014 09/16/2014 [facility] Follow up 3 Month [id number] 09/16/2014 09/16/2014 [facility] Follow up 3 Month [id number] 09/16/2014 09/16/2014 [facility] Follow up 3 Month [id number] 09/16/2014 09/16/2014 [facility] Follow up 3 Month [id number] 09/16/2014 09/16/2014 [facility] Follow up 3 Month [id number] 09/16/2014 09/16/2014 [facility] Follow up 3 Month [id number] 09/16/2014 09/16/2014 [facility] Follow up 3 Month [id number] 09/16/2014 09/16/2014 [facility] Follow up 3 Month [id number] 09/16/2014 09/16/2014 [facility] Follow up 3 Month [id number] 09/16/2014 09/16/2014 [facility] Not happy with Lyrica - FYI [facility] [employer] [id number] 10/05/2014 10/05/2014 [facility] Not happy with Lyrica - FYI Dr[facility] [employer] [id number] 10/05/2014 10/05/2014 [facility] Not happy with Lyrica - FYI Dr[facility] [employer] [id number] 10/05/2014 10/05/2014 [facility] Not happy with Lyrica - FYI Dr[facility] [employer] [id number] 10/05/2014 10/05/2014 [facility] Not happy with Lyrica - FYI Dr[facility] [employer] [id number] 10/05/2014 10/05/2014 [facility] Not happy with Lyrica - FYI Dr[facility] [employer] [id number] 10/05/2014 10/05/2014 [facility] Not happy with Lyrica - FYI [facility] [employer] [id number] 10/05/2014 10/05/2014 [facility] Not happy with Lyrica - FYI Dr[facility] [employer] [id number] 10/05/2014 10/05/2014 [facility] Not happy with Lyrica - FYI Dr[facility] [employer] [id number] 10/05/2014 10/05/2014 [facility] Not happy with Lyrica - FYI Dr[facility] Stock [id number] 10/05/2014 10/05/2014 [facility] Not happy with Lyrica - FYI Dr[facility] [employer] [id number] 10/05/2014 10/05/2014 [facility] Not happy with Lyrica - FYI Dr[facility] Stock [id number] 10/05/2014 10/05/2014 [facility] Not happy with Lyrica - FYI Dr[facility] Stock [id number] 10/05/2014 10/05/2014 [facility] Not happy with Lyrica - FYI Dr[facility] [employer] [id number] 10/05/2014 10/05/2014 [facility] Not happy with Lyrica - FYI Dr[facility] Stock [id number] 10/05/2014 10/05/2014 [facility] Not happy with Lyrica - FYI Dr[facility] Stock [id number] 10/05/2014 10/05/2014 [facility] Not happy with Lyrica - FYI Dr[facility] [employer] [id number] 10/05/2014 10/05/2014 [facility] Not happy with Lyrica - FYI Dr. Maderam [id number] 10/05/2014 10/05/2014 [facility] Not happy with [facility] [employer] [id number] 10/05/2014 10/05/2014 [facility] Not happy with [employer] [id number] 10/05/2014 10/05/2014 [facility] new med follow up [id number] 10/21/2014 10/21/2014 [facility] new med follow up [id number] 10/21/2014 10/21/2014 [facility] new med follow up [id number] 10/21/2014 10/21/2014 [facility] new med follow up [id number] 10/21/2014 10/21/2014 [facility] new med follow up [id number] 10/21/2014 10/21/2014 [facility] new med follow up [id number] 10/21/2014 10/21/2014 [facility] new med follow up [id number] 10/21/2014 10/21/2014 [facility] new med follow up [id number] 10/21/2014 10/21/2014 [facility] new med follow up [id number] 10/21/2014 10/21/2014 [facility] new med follow up [id number] 10/21/2014 10/21/2014 [facility] new med follow up [id number] 10/21/2014 10/21/2014 [facility] new med follow up [id number] 10/21/2014 10/21/2014 [facility] new med follow up [id number] 10/21/2014 10/21/2014 [facility] new med follow up [id number] 10/21/2014 10/21/2014 [facility] new med follow up [id number] 10/21/2014 10/21/2014 [facility] new med follow up [id number] 10/21/2014 10/21/2014 [facility] new med follow up [id number] 10/21/2014 10/21/2014 [facility] new med follow up [id number] 10/21/2014 10/21/2014 [facility] new med follow up [id number] 10/21/2014 10/21/2014 [facility] follow up [id number] 11/25/2014 11/25/2014 [facility] follow up [id number] 11/25/2014 11/25/2014 [facility] follow up [id number] 11/25/2014 11/25/2014 [facility] follow up [id number] 11/25/2014 11/25/2014 [facility] follow up [id number] 11/25/2014 11/25/2014 [facility] follow up [id number] 11/25/2014 11/25/2014 [facility] follow up [id number] 11/25/2014 11/25/2014 [facility] follow up [id number] 11/25/2014 11/25/2014 [facility] follow up [id number] 11/25/2014 11/25/2014 [facility] follow up [id number] 11/25/2014 11/25/2014 [facility] follow up [id number] 11/25/2014 11/25/2014 [facility] follow up [id number] 11/25/2014 11/25/2014 [facility] follow up [id number] 11/25/2014 11/25/2014 [facility] follow up [id number] 11/25/2014 11/25/2014 [facility] follow up [id number] 11/25/2014 11/25/2014 [facility] follow up [id number] 11/25/2014 11/25/2014 [facility] follow up [id number] 11/25/2014 11/25/2014 [facility] follow up [id number] 11/25/2014 11/25/2014 [facility] Follow up [id number] 03/01/2015 03/01/2015 [facility] Follow up [id number] 03/01/2015 03/01/2015 [facility] Follow up [id number] 03/01/2015 03/01/2015 [facility] Follow up [id number] 03/01/2015 03/01/2015 [facility] Follow up [id number] 03/01/2015 03/01/2015 [facility] Follow up [id number] 03/01/2015 03/01/2015 [facility] Follow up [id number] 03/01/2015 03/01/2015 [facility] Follow up [id number] 03/01/2015 03/01/2015 [facility] Follow up [id number] 03/01/2015 03/01/2015 [facility] Follow up [id number] 03/01/2015 03/01/2015 [facility] Follow up [id number] 03/01/2015 03/01/2015 [facility] Follow up [id number] 03/01/2015 03/01/2015 [facility] Follow up [id number] 03/01/2015 03/01/2015 [facility] Follow up [id number] 03/01/2015 03/01/2015 [facility] Follow up [id number] 03/01/2015 03/01/2015 [facility] Follow up [id number] 03/01/2015 03/01/2015 [facility] Follow up [id number] 03/01/2015 03/01/2015 [facility] Follow up [id number] 03/01/2015 03/01/2015 [facility] schedule mri [id number] 03/01/2015 03/01/2015 [facility] schedule mri [id number] 03/01/2015 03/01/2015 [facility] schedule mri [id number] 03/01/2015 03/01/2015 [facility] schedule mri [id number] 03/01/2015 03/01/2015 [facility] schedule mri [id number] 03/01/2015 03/01/2015 [facility] schedule mri [id number] 03/01/2015 03/01/2015 [facility] schedule mri [id number] 03/01/2015 03/01/2015 [facility] schedule mri [id number] 03/01/2015 03/01/2015 [facility] schedule mri [id number] 03/01/2015 03/01/2015 [facility] schedule mri [id number] 03/01/2015 03/01/2015 [facility] schedule mri [id number] 03/01/2015 03/01/2015 [facility] schedule mri [id number] 03/01/2015 03/01/2015 [facility] schedule mri [id number] 03/01/2015 03/01/2015 [facility] schedule mri [id number] 03/01/2015 03/01/2015 [facility] schedule mri [id number] 03/01/2015 03/01/2015 [facility] schedule mri [id number] 03/01/2015 03/01/2015 [facility] schedule mri [id number] 03/01/2015 03/01/2015 [facility] schedule mri [id number] 03/01/2015 03/01/2015 [facility] routine [id number] 05/04/2015 05/04/2015 [facility] routine [id number] 05/04/2015 05/04/2015 [facility] routine [id number] 05/04/2015 05/04/2015 [facility] routine [id number] 05/04/2015 05/04/2015 [facility] routine [id number] 05/04/2015 05/04/2015 [facility] routine [id number] 05/04/2015 05/04/2015 [facility] routine [id number] 05/04/2015 05/04/2015 [facility] routine [id number] 05/04/2015 05/04/2015 [facility] routine [id number] 05/04/2015 05/04/2015 [facility] routine [id number] 05/04/2015 05/04/2015 [facility] routine [id number] 05/04/2015 05/04/2015 [facility] routine [id number] 05/04/2015 05/04/2015 [facility] routine [id number] 05/04/2015 05/04/2015 [facility] routine [id number] 05/04/2015 05/04/2015 [facility] routine [id number] 05/04/2015 05/04/2015 [facility] routine [id number] 05/04/2015 05/04/2015 [facility] New Refill Request [id number] 05/06/2015 05/06/2015 [facility] New Refill Request [id number] 05/06/2015 05/06/2015 [facility] New Refill Request [id number] 05/06/2015 05/06/2015 [facility] New Refill Request [id number] 05/06/2015 05/06/2015 [facility] New Refill Request [id number] 05/06/2015 05/06/2015 [facility] New Refill Request [id number] 05/06/2015 05/06/2015 [facility] New Refill Request [id number] 05/06/2015 05/06/2015 [facility] New Refill Request [id number] 05/06/2015 05/06/2015 [facility] New Refill Request [id number] 05/06/2015 05/06/2015 [facility] New Refill Request [id number] 05/06/2015 05/06/2015 [facility] New Refill Request [id number] 05/06/2015 05/06/2015 [facility] New Refill Request [id number] 05/06/2015 05/06/2015 [facility] New Refill Request [id number] 05/06/2015 05/06/2015 [facility] New Refill Request [id number] 05/06/2015 05/06/2015 [facility] New Refill Request [id number] 05/06/2015 05/06/2015 [facility] Re:RE:New Refill Request [id number] 05/06/2015 05/06/2015 [facility] Re:RE:New Refill Request [id number] 05/06/2015 05/06/2015 [facility] Re:RE:New Refill Request [id number] 05/06/2015 05/06/2015 [facility] Re:RE:New Refill Request [id number] 05/06/2015 05/06/2015 [facility] Re:RE:New Refill Request [id number] 05/06/2015 05/06/2015 [facility] Re:RE:New Refill Request [id number] 05/06/2015 05/06/2015 [facility] Re:RE:New Refill Request [id number] 05/06/2015 05/06/2015 [facility] Re:RE:New Refill Request [id number] 05/06/2015 05/06/2015 [facility] Re:RE:New Refill Request [id number] 05/06/2015 05/06/2015 [facility] Re:RE:New Refill Request [id number] 05/07/2015 05/07/2015 [facility] Re:RE:New Refill Request [id number] 05/07/2015 05/07/2015 [facility] Re:RE:New Refill Request [id number] 05/07/2015 05/07/2015 [facility] Re:RE:New Refill Request [id number] 05/07/2015 05/07/2015 [facility] Re:RE:New Refill Request [id number] 05/07/2015 05/07/2015 [facility] Re:RE:Re:RE:New Refill Request [id number] 05/07/2015 05/07/2015 [facility] Re:RE:Re:RE:New Refill Request [id number] 05/07/2015 05/07/2015 [facility] Re:RE:Re:RE:New Refill Request [id number] 05/07/2015 05/07/2015 [facility] Re:RE:Re:RE:New Refill Request [id number] 05/07/2015 05/07/2015 [facility] Re:RE:Re:RE:New Refill Request [id number] 05/07/2015 05/07/2015 [facility] Re:RE:Re:RE:New Refill Request [id number] 05/07/2015 05/07/2015 [facility] Re:RE:Re:RE:New Refill Request [id number] 05/07/2015 05/07/2015 [facility] Re:RE:Re:RE:New Refill Request [id number] 05/07/2015 05/07/2015 [facility] Re:RE:Re:RE:New Refill Request [id number] 05/07/2015 05/07/2015 [facility] Re:RE:Re:RE:New Refill Request [id number] 05/07/2015 05/07/2015 [facility] Re:RE:Re:RE:New Refill Request [id number] 05/07/2015 05/07/2015 [facility] Re:RE:Re:RE:New Refill Request [id number] 05/07/2015 05/07/2015 [facility] Re:RE:Re:RE:New Refill Request [id number] 05/07/2015 05/07/2015 [facility] Re:RE:Re:RE:New Refill Request [id number] 05/07/2015 05/07/2015 [facility] New Rx for Orencia 125/ml [id number] 05/26/2015 05/26/2015 [facility] New Rx for Orencia 125/ml [id number] 05/26/2015 05/26/2015 [facility] New Rx for Orencia 125/ml [id number] 05/26/2015 05/26/2015 [facility] New Rx for Orencia 125/ml [id number] 05/26/2015 05/26/2015 [facility] New Rx for Orencia 125/ml [id number] 05/26/2015 05/26/2015 [facility] New Rx for Orencia 125/ml [id number] 05/26/2015 05/26/2015 [facility] New Rx for Orencia 125/ml [id number] 05/26/2015 05/26/2015 [facility] New Rx for Orencia 125/ml [id number] 05/26/2015 05/26/2015 [facility] New Rx for Orencia 125/ml [id number] 05/26/2015 05/26/2015 [facility] New Rx for Orencia 125/ml [id number] 05/26/2015 05/26/2015 [facility] New Rx for Orencia 125/ml [id number] 05/26/2015 05/26/2015 [facility] New Rx for Orencia 125/ml [id number] 05/26/2015 05/26/2015 [facility] Follow up [id number] 06/01/2015 06/01/2015 [facility] Follow up [id number] 06/01/2015 06/01/2015 [facility] Follow up [id number] 06/01/2015 06/01/2015 [facility] Follow up [id number] 06/01/2015 06/01/2015 [facility] Follow up [id number] 06/01/2015 06/01/2015 [facility] Follow up [id number] 06/01/2015 06/01/2015 [facility] Follow up [id number] 06/01/2015 06/01/2015 [facility] Follow up [id number] 06/01/2015 06/01/2015 [facility] Follow up [id number] 06/01/2015 06/01/2015 [facility] Follow up [id number] 06/01/2015 06/01/2015 [facility] Follow up [id number] 06/01/2015 06/01/2015 [facility] Orencia Inj Approval [id number] 06/07/2015 06/07/2015 [facility] Orencia Inj Approval [id number] 06/07/2015 06/07/2015 [facility] Orencia Inj Approval [id number] 06/07/2015 06/07/2015 [facility] Orencia Inj Approval [id number] 06/07/2015 06/07/2015 [facility] Orencia Inj Approval [id number] 06/07/2015 06/07/2015 [facility] Orencia Inj Approval [id number] 06/07/2015 06/07/2015 [facility] Orencia Inj Approval [id number] 06/07/2015 06/07/2015 [facility] Orencia Inj Approval [id number] 06/07/2015 06/07/2015 [facility] Orencia Inj Approval [id number] 06/07/2015 06/07/2015 [facility] Orencia Inj Approval [id number] 06/07/2015 06/07/2015 [facility] Follow up 3 Month [id number] 08/31/2015 08/31/2015 [facility] Follow up 3 Month [id number] 08/31/2015 08/31/2015 [facility] Follow up 3 Month [id number] 08/31/2015 08/31/2015 [facility] Follow up 3 Month [id number] 08/31/2015 08/31/2015 [facility] Follow up 3 Month [id number] 08/31/2015 08/31/2015 [facility] Follow up 3 Month [id number] 08/31/2015 08/31/2015 [facility] Follow up 3 Month [id number] 08/31/2015 08/31/2015 [facility] Follow up 3 Month [id number] 08/31/2015 08/31/2015 [facility] Follow up 3 Month [id number] 08/31/2015 08/31/2015 [facility] Lyrica refill req [id number] 11/22/2015 11/22/2015 [facility] Lyrica refill req [id number] 11/22/2015 11/22/2015 [facility] Lyrica refill req [id number] 11/22/2015 11/22/2015 [facility] Lyrica refill req [id number] 11/22/2015 11/22/2015 [facility] Lyrica refill req [id number] 11/22/2015 11/22/2015 [facility] Lyrica refill req [id number] 11/22/2015 11/22/2015 [facility] Lyrica refill req [id number] 11/22/2015 11/22/2015 [facility] Lyrica refill req [id number] 11/22/2015 11/22/2015 [facility] Follow up 3 Month [id number] 12/01/2015 12/01/2015 [facility] Follow up 3 Month [id number] 12/01/2015 12/01/2015 [facility] Follow up 3 Month [id number] 12/01/2015 12/01/2015 [facility] Follow up 3 Month [id number] 12/01/2015 12/01/2015 [facility] Follow up 3 Month [id number] 12/01/2015 12/01/2015 [facility] Follow up 3 Month [id number] 12/01/2015 12/01/2015 [facility] Follow up 3 Month [id number] 12/01/2015 12/01/2015 [facility] New Refill Request [id number] 12/21/2015 12/21/2015 [facility] New Refill Request [id number] 12/21/2015 12/21/2015 [facility] New Refill Request [id number] 12/21/2015 12/21/2015 [facility] New Refill Request [id number] 12/21/2015 12/21/2015 [facility] New Refill Request [id number] 12/21/2015 12/21/2015 [facility] New Refill Request [id number] 12/21/2015 12/21/2015 [facility] Request of Lyrica RX [id number] 12/21/2015 12/21/2015 [facility] Request of Lyrica RX [id number] 12/21/2015 12/21/2015 [facility] Request of Lyrica RX [id number] 12/21/2015 12/21/2015 [facility] Request of Lyrica RX [id number] 12/21/2015 12/21/2015 [facility] Request of Lyrica RX [id number] 12/21/2015 12/21/2015 [facility] My mistake re Lyrica RX [id number] 12/21/2015 12/21/2015 [facility] My mistake re Lyrica RX [id number] 12/22/2015 12/22/2015 [facility] My mistake re Lyrica RX [id number] 12/22/2015 12/22/2015 [facility] My mistake re Lyrica RX [id number] 12/22/2015 12/22/2015 [facility] discuss medication [id number] 02/03/2016 02/03/2016 [facility] discuss medication [id number] 02/03/2016 02/03/2016 [facility] discuss medication [id number] 02/03/2016 02/03/2016 [facility] 6wk follow up/labs [id number] 03/22/2016 03/22/2016 [facility] 6wk follow up/labs [id number] 03/22/2016 03/22/2016 [facility] Follow up/lab results [id number] 04/20/2016 04/20/2016 [facility] Procedures Procedure Code Date Perfomer Comments Source
--- OUTSIDE RECORDS SUMMARY | 2018-04-25 06:20 | XMS REPORT ---
Author Author Shania Stock Organization [employer] Address Unknown Phone Unavailable Care Team Providers Care Veterans' Counselor Name Role Phone Shania Stock CP Unavailable Allergies No Known Allergies Problems Problem Type Condition Code Onset Dates Condition Status Problem GERD without esophagitis K21.9 Active Problem Rheumatoid arthritis of multiple sites without rheumatoid factor M06.09 Active Problem Osteoporosis M81.0 Active Problem Rheumatoid arthritis 714.0 Active Medications Medication Code System Code Instructions Start Date End Date Status Dosage Tizanidine HCl [facility] 82463465195 4 MG Orally bedtime Nov 10, 2017 Active 1 tablet as needed Results No Known Results Summary Purpose [employer] Submission
--- OUTSIDE RECORDS SUMMARY | 2018-04-25 06:20 | XMS REPORT ---
Author Author Shania Stock Organization [employer] Address Unknown Phone Unavailable Care Team Providers Care Mandrel Press Hand Name Role Phone Shania Stock CP Unavailable [...]
--- OUTSIDE RECORDS SUMMARY | 2018-04-25 06:20 | XMS REPORT ---
Author Author Shania Stock Organization [employer] Address Unknown Phone Unavailable Care Team Providers Care Ink Jet Operator Name Role Phone Shania Stock CP Unavailable [...]
--- OUTSIDE RECORDS SUMMARY | 2018-04-25 06:21 | XMS REPORT ---
Author Author Shania Stock Organization [employer] Address Unknown Phone Unavailable Care Team Providers Care Commercial Sheet Metal Foreman Name Role Phone Shania Stock CP Unavailable Encounters Encounter Location Date Follow Up Lab & MRI Results [facility] Mar 02, 2014 Iron testing [facility] Mar 11, 2014 lab results follow up [facility] Apr 02, 2014 follow up [facility] May 25, 2014 RA [facility] Feb 03, 2014 Left Wrist MRI [facility] Feb 11, 2014 Right Wrist MRI [facility] Feb 12, 2014 Follow up 3 Month [facility] September 16, 2014 Not happy with [facility] Oct 05, 2014 Problems Problem Type Condition ICD-9 Code Onset Dates Condition Status Problem Rheumatoid arthritis 714.0 Active Social History Social History Element Qualifiers Date Reported Smoking status: . Are you a: Never Smoker September 16, 2014 alcohol no. September 16, 2014 Summary Purpose [employer] Submission
--- OUTSIDE RECORDS SUMMARY | 2018-04-25 06:21 | XMS REPORT ---
Author Author Shania Stock Organization [employer] Address Unknown Phone Unavailable Care Team Providers Care Operating Room Surgical Technician Name Role Phone Shania Stock CP [...] Wrist MRI [facility] Feb 12, 2014 new med follow up [facility] Oct 21, 2014 Follow up 3 Month [facility] August 31, 2015 Orencia Inj Approval [facility] June 07, 2015 Follow up 3 Month [facility] September 16, 2014 Not happy with [facility] Oct 05, 2014 Re:RE:Re:RE:New Refill Request [facility] May 07, 2015 New Rx for Orencia 125/ml [facility] May 26, 2015 New Refill Request [facility] May 06, 2015 Re:RE:New Refill Request [facility] May 06, 2015 Lyrica refill req [facility] Nov 22, 2015 Follow up [facility] Mar 01, 2015 routine [facility] May 04, 2015 follow up [facility] Nov 25, 2014 schedule mri [facility] Mar 01, 2015 Follow up [facility] June 01, 2015 Problems Problem Type Condition ICD-9 Code Onset Dates Condition Status Problem Rheumatoid arthritis 714.0 Active Problem Rheumatoid arthritis of multiple sites without rheumatoid factor M06.09 Active Medications Medication Code System Code Instructions Start Date End Date Status Dosage Lyrica MEDISPAN [id number] 50 orally daily Active TAKE 1 CAPSULE BY MOUTH DAILY Social History Social History Element Qualifiers Date Reported Smoking status: . Are you a: Never Smoker August 31, 2015 alcohol no. August 31, 2015 Summary Purpose [employer] Submission
--- OUTSIDE RECORDS SUMMARY | 2018-04-25 06:21 | XMS REPORT ---
Author Author Shania Stock Organization [employer] Address Unknown Phone Unavailable Care Team Providers Care Photoengraver Name Role Phone Shania Stock CP Unavailable [...] [facility] Oct 05, 2014 New Refill Request [facility] May 06, 2015 Follow up [facility] Mar 01, 2015 routine [facility] May 04, 2015 follow up [facility] Nov 25, 2014 schedule mri [facility] Mar 01, 2015 Problems Problem Type Condition ICD-9 Code Onset Dates Condition Status Problem Rheumatoid arthritis 714.0 Active Problem Rheumatoid arthritis of multiple sites without rheumatoid factor M06.09 Active Medications Medication Code System Code Instructions Start Date End Date Status Dosage Flexeril MEDISPAN 15685645424 10MG orally daily prn August 04, 2015 Active TAKE 1 TABLET 3 TIMES A DAY Lyrica MEDISPAN [address]-49 50 MG Orally daily Active 1 capsule Social History Social History Element Qualifiers Date Reported Smoking status: . Are you a: Never Smoker May 04, 2015 alcohol no. May 04, 2015 Summary Purpose [employer] Submission
--- OUTSIDE RECORDS SUMMARY | 2018-04-25 06:21 | XMS REPORT ---
Author Author Shania Stock Organization eClinicalWorks Address Unknown Phone Unavailable Care Team Providers Care Screen Printing Inspector Name Role Phone Shania Stock CP Unavailable Allergies, Adverse Reactions, Alerts Substance Reaction Event Type Hydrocodone-Acetaminophen Info Not Available Drug Allergy morphine Info Not Available Non Drug Allergy NSAIDS anaphylaxis Non Drug Allergy codiene Info Not Available Non Drug Allergy sulfa Info Not Available Non Drug Allergy Encounters Encounter Location Date Follow Up Lab & MRI Results [facility] Mar 02, 2014 Iron testing [facility] Mar 11, 2014 lab results follow up [facility] Apr 02, 2014 follow up [facility] May 25, 2014 RA [facility] Feb 03, 2014 Left Wrist MRI [facility] Feb 11, 2014 Right Wrist MRI [facility] Feb 12, 2014 [facility] follow up [facility] Oct 21, 2014 Follow up 3 Month [facility] September 16, 2014 Not happy with [facility] Oct 05, 2014 Follow up [facility] Mar 01, 2015 routine [facility] May 04, 2015 follow up [facility] Nov 25, 2014 schedule mri [facility] Mar 01, 2015 Problems Problem Type Condition ICD-9 Code Onset Dates Condition Status Assessment Osteoarthritis of multiple joints M15.9 Active Problem Rheumatoid arthritis 714.0 Active Assessment Rheumatoid arthritis of multiple sites without rheumatoid factor M06.09 Active Problem Rheumatoid arthritis of multiple sites without rheumatoid factor M06.09 Active Assessment Hand pain, right M79.641 Active Assessment ESR raised R70.0 Active Assessment High risk medication use Z79.899 Active Assessment Hand pain, left M79.642 Active Medications Medication Code System Code Instructions Start Date End Date Status Dosage Flexeril [facility] 34975801987 10MG Active TAKE 1 TABLET 3 TIMES A DAY Iron Combinations Unknown 0 Orally Active Unknown Tramadol-Acetaminophen [facility] [address]-84 37.5-325 MG Orally every 8 hrs as needed Active 1 tab(s) Omeprazole [facility] [address]-67 20 MG Orally Once a day Active 1 capsule Tylenol [facility] [address]-11 325 MG Orally every 6 hrs Active 1 tablet as needed Plaquenil [facility] 77852086565 200MG Active TAKE 2 TABLETS ONCE DAILY Multi Vitamins Unknown 0 Oral Active 1 tab Lexapro [facility] [address]-35 20 mg Orally Once a day Active 1 tab(s) K13-Hxsklw [facility] 78892-12130 1 MG Orally Active Unknown Orencia [facility] [address]-50 125 MG/ML Subcutaneous once weekly May 04, 2015 June 03, 2015 Active 1 ml Lyrica [facility] [address]-17 50 MG Orally daily Active 1 capsule Viactiv [facility] [address]-44 500-500-40 MG-UNT-MCG Orally Once a day Active 1 tablet with a meal Ambien [facility] [address]-80 5 MG Orally Once a day Active 1 tablet at bedtime Social History Social History Element Qualifiers Date Reported Smoking status: . Are you a: Never Smoker May 04, 2015 alcohol no. May 04, 2015 Vital Signs Date/Time: May 04, 2015 Height 65 in Blood Pressure Diastolic 81 mm Hg Blood Pressure Systolic 149 mm Hg Weight 232.8 lbs Summary Purpose eClinicalWorks Submission
--- OUTSIDE RECORDS SUMMARY | 2018-04-25 06:21 | XMS REPORT ---
Author Author Shania Stock Organization [employer] Address Unknown Phone Unavailable Care Team Providers Care Immigration Case Worker Name Role Phone Shania Stock CP Unavailable [...] Follow up [facility]ology [facility] Mar 01, 2015 Follow up 3 Month [facility] Dec 01, 2015 routine [facility] May 04, 2015 follow up [facility] Nov 25, 2014 schedule mri [facility] Mar 01, 2015 Follow up [facility]umatology Clinic June 01, 2015 Problems Problem Type Condition ICD-9 Code Onset Dates Condition Status Assessment Other chronic pain G89.29 Active Problem Rheumatoid arthritis 714.0 Active Assessment Rheumatoid arthritis of multiple sites without rheumatoid factor M06.09 Active Problem Rheumatoid arthritis of multiple sites without rheumatoid factor M06.09 Active Assessment Osteoarthritis of knees, bilateral M17.0 Active Assessment Low back pain M54.5 Active Assessment High risk medication use Z79.899 Active Assessment Osteoarthritis of multiple joints M15.9 Active Medications Medication Code System Code Instructions Start Date End Date Status Dosage Lexapro [facility] [address]-31 20 mg Orally Once a day Active 1 tab(s) Orencia [facility] 56056255298 125 MG/ML Active INJECT 1 ML (125 MG) SUBCUTANEOUSLY ONCE A WEEK. REFRIGERATE. ALLOW SYRINGE TO WARM TO ROOM TEMPERATURE FOR 30 MIN PRIOR TO INJECTION. Plaquenil [facility] 59867083152 200MG Active TAKE 2 TABLETS ONCE DAILY Omeprazole [facility] [address]-14 20 MG Orally Once a day Active 1 capsule Lyrica [facility] 77960567569 50 orally daily Active TAKE 1 CAPSULE BY MOUTH DAILY Flexeril [facility] 00487031318 10MG orally daily prn May 29, 2016 Active take 1 tablet 3 times a day Viactiv [facility] [address]-61 500-500-40 MG-UNT-MCG Orally Once a day Active 1 tablet with a meal Iron Combinations Unknown 0 Orally Active Unknown Ambien [facility] [address]-92 5 MG Orally Once a day Active 1 tablet at bedtime Y98-Vjqyhm [facility] 83553-30928 1 MG Orally Active Unknown Lyrica [facility] [address]-80 50 MG Orally 1 tab twice daily Active 1 capsule Multi Vitamins Unknown 0 Oral Active 1 tab Orencia [facility] [address]-36 125 MG/ML Subcutaneous once weekly Active 1 ml Tylenol [facility] [address]-40 325 MG Orally every 6 hrs Active 1 tablet as needed Tramadol-Acetaminophen [facility] [address]-48 37.5-325 MG Orally bid prn May 29, 2016 Active 1 tab(s) Flomax [facility] [address]-74 0.4 MG Orally Once a day Active 1 tab(s) Social History Social History Element Qualifiers Date Reported Smoking status: . Are you a: Never Smoker Dec 01, 2015 alcohol no. Dec 01, 2015 Vital Signs Date/Time: Dec 01, 2015 Height 65 in Blood Pressure Diastolic 77 mm Hg Blood Pressure Systolic 123 mm Hg Weight 239.8 lbs Summary Purpose eClinicalWorks Submission
--- OUTSIDE RECORDS SUMMARY | 2018-04-25 06:21 | XMS REPORT ---
Author Author Shania Stock Organization [employer] Address Unknown Phone Unavailable Care Team Providers Care Clinical Cytogeneticist Name Role Phone Shania Stock CP Unavailable [...] Request Rheumatology Clinic May 07, 2015 New Refill Request Rheumatology Clinic May [...] Date End Date Status Dosage Flexeril MEDISPAN 55141301223 10MG orally daily prn Nov 03, 2015 Active TAKE 1 TABLET 3 TIMES A DAY Lyrica [facility] [address]-20 50 MG Orally daily Active 1 capsule Social History Social History Element Qualifiers Date Reported Smoking status: . Are you a: Never Smoker May 04, 2015 alcohol no. May 04, 2015 Summary Purpose eClinicalWorks Submission
--- OUTSIDE RECORDS SUMMARY | 2018-04-25 06:21 | XMS REPORT ---
Author Author Shania Stock Organization [employer] Address Unknown Phone Unavailable Care Team Providers Care Apiculture Teacher Name Role Phone Shania Stock CP Unavailable [...] ICD-9 Code Onset Dates Condition Status Assessment Generalized osteoarthrosis, involving multiple sites 715.09 Active Assessment Asymptomatic postmenopausal status (age-related) (natural) V49.81 Active Assessment Rheumatoid arthritis 714.0 Active Assessment monitorring of highrisk meds V58.69 Active Problem Rheumatoid arthritis 714.0 Active Assessment Lumbago 724.2 Active Assessment Pain in joint, hand 719.44 Active Assessment Counseling NOS V65.40 Active Assessment myalgia and myositis 729.1 Active Medications Medication Code System Code Instructions Start Date End Date Status Dosage [facility] [address]-20 1 mg Orally Once a day Mar 02, 2014 Nov 21, 2014 Inactive 1 tablet Iron Combinations Unknown 0 Orally Active Unknown Lexapro [facility] [address]-21 20 mg Orally Once a day Active 1 tab(s) Viactiv [facility] [address]-48 500-500-40 MG-UNT-MCG Orally Once a day Active 1 tablet with a meal [facility] [address]-33 325 MG Orally every 6 hrs Active 1 tablet as needed Omeprazole [facility] [address]-29 20 MG Orally Once a day Active 1 capsule Methotrexate Sodium [facility] 59835842231 25 Inactive INJECT 0.4 ML UNDER THE SKIN ONCE A WEEK Ambien [facility] [address]-07 5 MG Orally Once a day Active 1 tablet at bedtime Flexeril Unknown 0 10 mg orally tid Nov 21, 2014 Active 1 tab(s) Lyrica [facility] [address]-55 50 MG Orally Twice a day September 16, 2014 Active 1 capsule Multi Vitamins Unknown 0 Oral Active 1 tab Tramadol-Acetaminophen [facility] [address]-03 37.5-325 MG Orally every 8 hrs as needed September 16, 2014 Jan 14, 2015 Active 1 tab(s) Plaquenil [facility] [address]-53 200 MG Orally Once a day Nov 21, 2014 Inactive 2 tabs O71-Qpxjbn [facility] 26690-37321 1 MG Orally Active Unknown Social History Social History Element Qualifiers Date Reported Smoking status: . Are you a: Never Smoker Oct 21, 2014 alcohol no. Oct 21, 2014 Vital Signs Date/Time: Oct 21, 2014 Height 65 in Blood Pressure Diastolic 73 mm Hg Blood Pressure Systolic 136 mm Hg Weight 242.2 lbs Summary Purpose eClinicalWorks Submission
--- OUTSIDE RECORDS SUMMARY | 2018-04-25 06:21 | XMS REPORT ---
Author Author Shania Stock Organization [employer] Address Unknown Phone Unavailable Care Team Providers Care Data Center Engineer Name Role Phone Shania Stock CP Unavailable [...] multiple sites without rheumatoid factor M06.09 Active Social History Social History Element Qualifiers Date Reported Smoking status: . Are you a: Never Smoker May 04, 2015 alcohol no. May 04, 2015 Summary Purpose eClinicalWorks Submission
--- OUTSIDE RECORDS SUMMARY | 2018-04-25 06:21 | XMS REPORT ---
Author Author Shania Stock Organization [employer] Address Unknown Phone Unavailable Care Team Providers Care Marketing Communications Assistant Name Role Phone Shania Stock CP Unavailable [...] Iron testing [facility]ology [facility] Mar 11, 2014 RA [facility] Feb 03, 2014 Left Wrist MRI [facility] Feb 11, 2014 Right Wrist MRI [facility] Feb 12, 2014 Problems Problem Type Condition ICD-9 Code Onset Dates Condition Status Assessment monitorring of [email or web address] V58.69 Active Assessment 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 Active Assessment Rheumatoid arthritis 714.0 Active Social History Social History Element Qualifiers Date Reported Smoking status: . Are you a: Never Smoker Mar 02, 2014 alcohol no. Mar 02, 2014 Vital Signs Date/Time: Mar 02, 2014 Height 65 in Blood Pressure Diastolic 75 mm Hg Blood Pressure Systolic 139 mm Hg Weight 250 lbs Summary Purpose eClinicalWorks Submission
--- OUTSIDE RECORDS SUMMARY | 2018-04-25 06:21 | XMS REPORT ---
Author Author Shania Stock Organization [employer] Address Unknown Phone Unavailable Care Team Providers Care Ncqa Specialist Name Role Phone Shania Stock CP Unavailable [...] Follow up Rheumatology Clinic Mar 01, 2015 follow up [facility]ology Clinic Nov 25, 2014 schedule mri [facility] Mar 01, 2015 Problems Problem Type Condition ICD-9 Code Onset Dates Condition Status Problem Rheumatoid arthritis 714.0 Active Problem Rheumatoid arthritis of multiple sites without rheumatoid factor M06.09 Active Social History Social History Element Qualifiers Date Reported Smoking status: . Are you a: Never Smoker Mar 01, 2015 alcohol no. Mar 01, 2015 Summary Purpose eClinicalWorks Submission
--- OUTSIDE RECORDS SUMMARY | 2018-04-25 06:21 | XMS REPORT ---
Author Author Shania Stock Organization [employer] Address Unknown Phone Unavailable Care Team Providers Care Timber Sizer Operator Name Role Phone Shania Stock CP [...] Rheumatology Clinic Feb 12, 2014 [facility] follow up [facility]umatology Clinic Oct 21, 2014 Follow up 3 Month [facility]ology Clinic September 16, 2014 Not happy with [facility] Oct 05, 2014 Follow up [facility]umatology Clinic Mar 01, 2015 follow up [facility]umatology Clinic Nov 25, 2014 schedule mri [facility] Clinic Mar 01, 2015 Problems Problem Type Condition ICD-9 Code Onset Dates Condition Status Assessment Chronic pain G89.29 Active Problem Rheumatoid arthritis 714.0 Active Assessment Rheumatoid arthritis of multiple sites without rheumatoid factor M06.09 Active Problem Rheumatoid arthritis of multiple sites without rheumatoid factor M06.09 Active Assessment Pain, joint, hand, right M79.641 Active Assessment Renal and ureteric calculus N20.2 Active Assessment Screening for osteoporosis V82.81 Active Assessment Pain, joint, hand, left M79.642 Active Medications Medication Code System Code Instructions Start Date End Date Status Dosage Lyrica [facility] [address]-69 50 MG Orally Twice a day Active 1 capsule Plaquenil [facility] 23522117179 200MG Active TAKE 2 TABLETS ONCE DAILY Iron Combinations Unknown 0 Orally Active Unknown A84-Lmugef [facility] 52353-06511 1 MG Orally Active Unknown Tylenol [facility] [address]-51 325 MG Orally every 6 hrs Active 1 tablet as needed Lexapro [facility] [address]-10 20 mg Orally Once a day Active 1 tab(s) Ambien [facility] [address]-44 5 MG Orally Once a day Active 1 tablet at bedtime Multi Vitamins Unknown 0 Oral Active 1 tab Viactiv [facility] [address]-62 500-500-40 MG-UNT-MCG Orally Once a day Active 1 tablet with a meal Omeprazole [facility] [address]-32 20 MG Orally Once a day Active 1 capsule Tramadol-Acetaminophen [facility] [address]-34 37.5-325 MG Orally every 8 hrs as needed Active 1 tab(s) Flexeril [facility] 67174808468 10MG Active TAKE 1 TABLET 3 TIMES A DAY Social History Social History Element Qualifiers Date Reported Smoking status: . Are you a: Never Smoker Mar 01, 2015 alcohol no. Mar 01, 2015 Vital Signs Date/Time: Mar 01, 2015 Height 65 in Blood Pressure Diastolic 78 mm Hg Blood Pressure Systolic 125 mm Hg Weight 232.8 lbs Summary Purpose eClinicalWorks Submission
--- OUTSIDE RECORDS SUMMARY | 2018-04-25 06:21 | XMS REPORT ---
Author Author Shania Stock Organization eClinicalWorks Address Unknown Phone Unavailable Care Team Providers Care Dental Equipment Mechanic Name Role Phone Shania Stock CP Unavailable [...] Condition Status Problem Rheumatoid arthritis 714.0 Active Assessment Rheumatoid arthritis of multiple sites without rheumatoid factor M06.09 Active Problem Rheumatoid arthritis of multiple sites without rheumatoid factor M06.09 Active Assessment Osteoarthritis of multiple joints M15.9 Active Assessment High risk medication use Z79.899 Active Assessment ESR raised R70.0 Active Medications Medication Code System Code Instructions Start Date End Date Status Dosage Tramadol-Acetaminophen [facility] [address]-53 37.5-325 MG Orally every 8 hrs as needed Active 1 tab(s) Ambien [facility] [address]-39 5 MG Orally Once a day Active 1 tablet at bedtime Tylenol [facility] [address]-98 325 MG Orally every 6 hrs Active 1 tablet as needed H03-Nymnrt [facility] [address]54[address]-07254 1 MG Orally Active Unknown Iron Combinations Unknown 0 Orally Active Unknown Omeprazole [facility] [address]-04 20 MG Orally Once a day Active 1 capsule Multi Vitamins Unknown 0 Oral Active 1 tab Lexapro [facility] [address]-76 20 mg Orally Once a day Active 1 tab(s) Orencia [facility] [address]-33 125 MG/ML Subcutaneous once weekly May 04, 2015 June 03, 2015 Active 1 ml Lyrica [facility] [address]-43 50 MG Orally daily Active 1 capsule Plaquenil [facility] 37703239533 200MG Active TAKE 2 TABLETS ONCE DAILY Orencia [facility] [address]-00 125 MG/ML Subcutaneous once weekly Active 1 ml Viactiv [facility] [address]-63 500-500-40 MG-UNT-MCG Orally Once a day Active 1 tablet with a meal Flexeril [facility] 48085542140 10MG orally daily prn Nov 03, 2015 Active TAKE 1 TABLET 3 TIMES A DAY Social History Social History Element Qualifiers Date Reported Smoking status: . Are you a: Never Smoker June 01, 2015 alcohol no. June 01, 2015 Vital Signs Date/Time: June 01, 2015 Height 65 in Blood Pressure Diastolic 80 mm Hg Blood Pressure Systolic 131 mm Hg Weight 234.2 lbs Summary Purpose eClinicalWorks Submission
--- OUTSIDE RECORDS SUMMARY | 2018-04-25 06:21 | XMS REPORT ---
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 Active Assessment Rheumatoid arthritis 714.0 Active Problem Rheumatoid arthritis 714.0 Active Assessment Counseling NOS V65.40 Active Assessment 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 Active Assessment monitorring of [employer] V58.69 Active Medications Medication Code System Code Instructions Start Date End Date Status Dosage Iron Combinations Unknown 0 Orally Active Unknown Ambien [facility] [address]-87 5 MG Orally Once a day Active 1 tablet at bedtime Multi Vitamins Unknown 0 Oral Active 1 tab Folic Acid [facility] [address]-85 1 mg Orally Once a day Mar 02, 2014 August 29, 2014 Active 1 tablet Viactiv [facility] [address]-06 500-500-40 MG-UNT-MCG Orally Once a day Active 1 tablet with a meal Tramadol HCl [facility] [address]-49 50 MG Orally every 6 hrs Active 1 tablet as needed Lexapro [facility] [address]-66 20 MG Orally Once a day Active 0.5 tablet Tylenol [facility] [address]-43 325 MG Orally every 6 hrs Active 1 tablet as needed Omeprazole [facility] [address]-12 20 MG Orally Once a day Active 1 capsule Methotrexate Sodium (PF) [facility] [address]-01 25 MG/ML subcutaneously once weekly Active 0.4 ml Flexeril Unknown 0 Active Unknown [facility] [address]95 1 MG Orally Active Unknown [facility]aqu[facility]il [facility] [address]-87 200 MG Orally Once a day Active 1 tablet with food or milk Social History Social History Element Qualifiers Date Reported Smoking status: . Are you a: Never Smoker Apr 02, 2014 alcohol no. Apr 02, 2014 Vital Signs Date/Time: Apr 02, 2014 Height 65 in Blood Pressure Diastolic 83 mm Hg Blood Pressure Systolic 148 mm Hg Weight 245 lbs Summary Purpose eClinicalWorks Submission
--- OUTSIDE RECORDS SUMMARY | 2018-04-25 06:21 | XMS REPORT ---
Author Author Shania Stock Organization eClinicalWorks Address Unknown Phone Unavailable Care Team Providers Care Linux Kernel Engineer Name Role Phone Shania Stock CP Unavailable Allergies, Adverse Reactions, Alerts Substance Reaction Event Type Hydrocodone-Acetaminophen Info Not Available Drug Allergy sulfa Info Not Available Non Drug Allergy morphine Info Not Available Non Drug Allergy NSAIDS anaphylaxis Non Drug Allergy codiene Info Not Available Non Drug Allergy Encounters [...] 3 Month Rheumatology Clinic September 16, 2014 Problems Problem Type Condition ICD-9 Code Onset Dates Condition Status Assessment Rheumatoid arthritis 714.0 Active Assessment monitorring of [employer] V58.69 Active Problem Rheumatoid arthritis 714.0 Active Assessment Unspecified visual disturbance 368.9 Active Assessment Counseling NOS V65.40 Active Assessment myalgia and myositis 729.1 Active Medications Medication Code System Code Instructions Start Date End Date Status Dosage [facility] [address]-21 20 MG Orally Once a day Active 1 capsule Plaquenil [facility] [address]-92 200 MG Orally Once a day Nov 21, 2014 Active 2 tabs Methotrexate Sodium [facility] 09877774968 25 Active INJECT 0.4 ML UNDER THE SKIN ONCE A WEEK Tramadol-Acetaminophen [facility] [address]-93 37.5-325 MG Orally every 8 hrs as needed September 16, 2014 Jan 14, 2015 Active 1 tab(s) Ambien [facility] [address]-93 5 MG Orally Once a day Active 1 tablet at bedtime Methotrexate Sodium (PF) [facility] [address]-62 25 MG/ML subcutaneously once weekly Inactive 0.4 ml Iron Combinations Unknown 0 Orally Active Unknown [facility]activ [facility] [address]-81 500-500-40 MG-UNT-MCG Orally Once a day Active 1 tablet with a meal Flexeril Unknown 0 10 mg orally tid Nov 21, 2014 Active 1 tab(s) Lyrica [facility] [address]-01 50 MG Orally Twice a day September 16, 2014 Active 1 capsule Tylenol [facility] [address]-26 325 MG Orally every 6 hrs Active 1 tablet as needed Lexapro [facility] [address]-33 20 mg Orally Once a day Inactive 0.5 tablet O53-Hnxmmr [facility] 46278-16492 1 MG Orally Active Unknown Multi Vitamins Unknown 0 Oral Active 1 tab Folic Acid [facility] [address]-01 1 mg Orally Once a day Mar 02, 2014 Nov 21, 2014 Active 1 tablet Tramadol HCl [facility] [address]-69 50 MG Orally every 6 hrs Inactive 1 tablet as needed Social History Social History Element Qualifiers Date Reported Smoking status: . Are you a: Never Smoker September 16, 2014 alcohol no. September 16, 2014 Vital Signs Date/Time: September 16, 2014 Height 65 in Blood Pressure Diastolic 76 mm Hg Blood Pressure Systolic 134 mm Hg Weight 240 lbs Summary Purpose eClinicalWorks Submission
--- OUTSIDE RECORDS SUMMARY | 2018-04-25 06:21 | XMS REPORT ---
Author Author Shania Stock Organization eClinicalWorks Address Unknown Phone Unavailable Care Team Providers Care Revenue Cycle Consultant Name Role Phone Shania Stock CP Unavailable [...] ICD-9 Code Onset Dates Condition Status Assessment Mouth sores K13.79 Active Problem Rheumatoid arthritis 714.0 Active Assessment Rheumatoid arthritis of multiple sites without rheumatoid factor M06.09 Active Problem Rheumatoid arthritis of multiple sites without rheumatoid factor M06.09 Active Assessment Osteoarthritis of multiple joints M15.9 Active Assessment Osteoarthritis of knees, bilateral M17.0 Active Assessment High risk medication use Z79.899 Active Assessment ESR raised R70.0 Active Medications Medication Code System Code Instructions Start Date End Date Status Dosage Lyrica MEDISPAN [address]-44 50 MG Orally daily Active 1 capsule Flexeril [facility] 79563210151 10MG orally daily prn Nov 03, 2015 Active TAKE 1 TABLET 3 TIMES A DAY Iron Combinations Unknown 0 Orally Active Unknown Omeprazole [facility] [address]-80 20 MG Orally Once a day Active 1 capsule Viactiv [facility] [address]-98 500-500-40 MG-UNT-MCG Orally Once a day Active 1 tablet with a meal Orencia [facility] [address]-97 125 MG/ML Subcutaneous once weekly Dec 04, 2015 Active 1 ml Tramadol-Acetaminophen [facility] [address]-92 37.5-325 MG Orally every 8 hrs as needed Active 1 tab(s) Plaquenil [facility] 88875562737 200MG Active TAKE 2 TABLETS ONCE DAILY Multi Vitamins Unknown 0 Oral Active 1 tab Nystatin [facility] [address]-31 913794 UNIT/ML Mouth/Throat Three times a day August 31, 2015 Oct 30, 2015 Active 2 teaspoons I37-Iyxsrb [facility] 99082-41301 1 MG Orally Active Unknown [facility] [address]-07 125 MG/ML Subcutaneous once weekly Active 1 ml Tylenol [facility] [address]-24 325 MG Orally every 6 hrs Active 1 tablet as needed Lexapro [facility] [address]-01 20 mg Orally Once a day Active 1 tab(s) Ambien [facility] [address]-41 5 MG Orally Once a day Active 1 tablet at bedtime Social History Social History Element Qualifiers Date Reported Smoking status: . Are you a: Never Smoker August 31, 2015 alcohol no. August 31, 2015 Vital Signs Date/Time: August 31, 2015 Height 65 in Blood Pressure Diastolic 83 mm Hg Blood Pressure Systolic 141 mm Hg Weight 237.4 lbs Summary Purpose eClinicalWorks Submission
--- OUTSIDE RECORDS SUMMARY | 2018-04-25 06:21 | XMS REPORT ---
Author Author Shania Stock Organization [employer] Address Unknown Phone Unavailable Care Team Providers Care Apprentice Instrument Technician Name Role Phone Shania Stock CP Unavailable Encounters Encounter Location Date Follow Up Lab & MRI Results [facility] Mar 02, 2014 Iron testing [facility] Mar 11, 2014 RA [facility] Feb 03, 2014 Left Wrist MRI [facility] Feb 11, 2014 Right Wrist MRI [facility] Feb 12, 2014 Social History Social History Element Qualifiers Date Reported Smoking status: . Are you a: Never Smoker Mar 02, 2014 alcohol no. Mar 02, 2014 Summary Purpose eClinicalWorks Submission
--- OUTSIDE RECORDS SUMMARY | 2018-04-25 06:21 | XMS REPORT ---
Author Author Shania Stock Organization [employer] Address Unknown Phone Unavailable Care Team Providers Care Nib Finisher Name Role Phone Shania Stock CP Unavailable [...]
--- OUTSIDE RECORDS SUMMARY | 2018-04-25 06:21 | XMS REPORT ---
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 Are you a: Never Smoker Feb 03, 2014 alcohol no. Feb 03, 2014 Summary Purpose eClinicalWorks Submission
--- OUTSIDE RECORDS SUMMARY | 2018-04-25 06:21 | XMS REPORT ---
Author Author Shania Stock Organization [employer] Address Unknown Phone Unavailable Care Team Providers Care Corrosion Control Fitter Name Role Phone Shania Stock CP Unavailable Encounters Encounter Location Date [facility] Feb 03, 2014 Left Wrist MRI [facility] Feb 11, 2014 Problems Problem Type Condition ICD-9 Code [...]
--- OUTSIDE RECORDS SUMMARY | 2018-04-25 06:21 | XMS REPORT ---
Author Author Shania Stock Organization [employer] Address Unknown Phone Unavailable Care Team Providers Care Gastroenterology Teacher Name Role Phone Shania Stock CP [...] follow up [facility]ology Clinic Oct 21, 2014 Orencia Inj Approval [facility] June 07, [...] Instructions Start Date End Date Status Dosage Orencia MEDISPAN [address]-59 125 MG/ML Subcutaneous once weekly Dec 04, 2015 Active 1 ml Social History Social History Element Qualifiers Date Reported Smoking status: . Are you a: Never Smoker June 01, 2015 alcohol no. June 01, 2015 Summary Purpose eClinicalWorks Submission
--- OUTSIDE RECORDS SUMMARY | 2018-04-25 06:21 | XMS REPORT ---
Author Author Shania Stock Organization [employer] Address Unknown Phone Unavailable Care Team Providers Care Pellet Press Operator Name Role Phone Cassyciarra Shania CP Unavailable Allergies, Adverse Reactions, Alerts Substance Reaction Event Type Hydrocodone-Acetaminophen Info Not Available Drug Allergy morphine Info Not Available Non Drug Allergy NSAIDS anaphylaxis Non Drug Allergy codiene Info Not Available Non Drug Allergy sulfa Info Not Available Non Drug Allergy Encounters Encounter Location Date [facility] Feb 03, 2014 Left Wrist MRI [facility] Feb 11, 2014 Problems Problem Type Condition ICD-9 Code Onset Dates Condition Status Problem 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 Active Assessment Rheumatoid arthritis 714.0 Active Problem Rheumatoid arthritis 714.0 Active Assessment monitorring of [place] V58.69 Active Assessment 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 Active Medications Medication Code System Code Instructions Start Date End Date Status Dosage Lexapro [facility] [address]-94 20 MG Orally Once a day Active 0.5 tablet Tramadol HCl [facility] [address]-30 50 MG Orally every 6 hrs Active 1 tablet as needed Tylenol [facility] [address]-51 325 MG Orally every 6 hrs Active 1 tablet as needed Viactiv [facility] [address]-33 500-500-40 MG-UNT-MCG Orally Once a day Active 1 tablet with a meal Methotrexate Sodium (PF) [facility] [address]-49 25 MG/ML intramuscularly once weekly Active 0.3 ml Flexeril Unknown 0 Active Unknown H11-Lbphej [facility] 49531-[address]60 1 MG Orally Active Unknown Omeprazole [facility] [address]-46 20 MG Orally Once a day Active 1 capsule Multi Vitamins Unknown 0 Oral Active 1 tab Iron Combinations Unknown 0 Orally Active Unknown Plaquenil [facility] [address]-93 200 MG Orally Once a day Active 1 tablet with food or milk Ambien [facility] [address]-63 5 MG Orally Once a day Active 1 tablet at bedtime Social History Social History Element Qualifiers Date Reported Smoking status: . Are you a: Never Smoker Feb 03, 2014 alcohol no. Feb 03, 2014 Vital Signs Date/Time: Feb 03, 2014 Height 65 in Blood Pressure Diastolic 69 mm Hg Blood Pressure Systolic 141 mm Hg Weight 248 lbs Results SJOGREN'S Abs (SS-A, SS-B) ANTI-SSA(-Neg=<1.0 AI) Negative ANTI-SSB(-Neg=<1.0 AI) Negative COMPREHENSIVE METABOLIC Bilirubin, Total(-0.2-1.0 mg/dL) 0.7 Sodium(-133-145 mmol/L) 141 A/G Ratio(-1.1-2.9 ) 2.1 Calcium(-8.6-10.4 mg/dL) 9.9 Chloride(-96-108 mmol/L) 104 e-GFR, (->60 mL/min) 115 Potassium(-3.3-5.3 mmol/L) 4.6 e-GFR(->60 mL/min) 95 Glucose(-70-99 mg/dL) 107 Total Protein(-5.9-8.4 g/dL) 6.8 ALT(-<33 U/L) 14 AST(-<32 U/L) 23 Globulin(-1.7-3.7 g/dL) 2.2 Alk Phos(-40-156 U/L) 83 Albumin(-3.5-5.2 g/dL) 4.6 Creatinine(-0.60-1.20 mg/dL) 0.63 CO2(-22-29 mmol/L) 21 BUN(-8-23 mg/dL) 15 Quantiferon TB Gold COMPONENT QFT-GOLD (SEE A322)(- ) TNP COMPONENT NIL VALUE (SEE A322)(- ) TNP COMPONENT TB AG. NIL(SEE A322)(- ) TNP COMP.MITOGEN NIL(SEE A322)(- ) TNP CBC w/DIFF, PLATELET CT. MCHC(-29.0-35.0 gm/dL) 32.5 MCH(-25.0-34.1 pg) 25.7 POLYS(-36.0-78.0 %) 51.0 RDW(-10.9-16.9 %) 16.7 MONOS(-0.0-13.0 %) 11.2 EOS(-0.0-8.0 %) 1.8 LYMPHS(-12.0-48.0 %) 35.1 PLATELET COUNT(-144-400 x10(3)/uL) 282 HCT(-34.5-46.5 %) 31.4 MPV(-8.2-11.9 fL) 9.4 MCV(-80.0-100.0 fL) 79.1 RBC(-3.60-5.50 x10(6)/uL) 3.97 BASOS(-0.0-2.0 %) 0.7 IMMATURE GRANULOCYTES(-0.0-1.6 %) 0.2 HGB(-11.5-15.6 gm/dL) 10.2 WBC(-3.40-11.80 x10(3)/uL) 4.56 HEP C AB W/RFX RT PCR ESR (SED-RATE) ESR (SED-RATE)(-<26 mm/hr) 54 HEPATITIS B SURFACE ANTIGEN HBsAg(-Negative ) Negative RF (RHEUMATOID ARTHRITIS) TITER RF, QUANTITATIVE(-<14 IU/mL) 9 ANTI-CITRULLINE, AB. (CCP) ANTI CITRULLINE(-<or=5 U/mL) <5.0 HEPATITIS B SURFACE ANTIBODY HBsAb(-Negative ) Negative Summary Purpose eClinicalWorks Submission
--- OUTSIDE RECORDS SUMMARY | 2018-04-25 06:22 | XMS REPORT ---
Author Author Shania Stock Organization eClinicalWorks Address Unknown Phone Unavailable Care Team Providers Care Stock Chaser Name Role Phone Shania Stock CP Unavailable Allergies, Adverse Reactions, Alerts Substance Reaction Event Type Hydrocodone-Acetaminophen Info Not Available Drug Allergy morphine Info Not Available Non Drug Allergy NSAIDS anaphylaxis Non Drug Allergy codiene Info Not Available Non Drug Allergy sulfa Info Not Available Non Drug Allergy Encounters Encounter Location Date new med follow up [facility] Oct 21, 2014 Re:RE:Re:RE:New Refill Request Rheumatology Clinic May [...] Follow up Rheumatology Clinic June 01, 2015 Follow Up Lab & MRI Results Rheumatology [...] [facility] Stock [facility] Oct 05, 2014 My mistake re Lyrica RX [facility] Dec 21, 2015 discuss medication [facility] Feb 03, 2016 6wk follow up/labs [facility] Mar 22, 2016 Lyrica refill req [facility] Nov 22, 2015 Follow up 3 Month [facility] Dec 01, 2015 New Refill Request [facility] Dec 20, 2015 Request of Lyrica RX [facility] Dec 21, 2015 Problems Problem Type Condition ICD-9 Code Onset Dates Condition Status Assessment Other chronic pain G89.29 Active Assessment Osteoarthritis of knees, bilateral M17.0 Active Assessment Low back pain M54.5 Active Assessment GERD without esophagitis K21.9 Active Assessment Osteoporosis M81.0 Active Problem GERD without esophagitis K21.9 Active [...] Start Date End Date Status Dosage Orencia [facility] 47262075430 125 MG/ML Active INJECT 1 ML (125 MG) SUBCUTANEOUSLY ONCE A WEEK. REFRIGERATE. ALLOW SYRINGE TO WARM TO ROOM TEMPERATURE FOR 30 MIN PRIOR TO INJECTION. Flexeril [facility] 11864504331 10MG orally daily prn Active take 1 tablet 3 times a day Ambien [facility] [address]-27 5 MG Orally Once a day Active 1 tablet at bedtime Tramadol-Acetaminophen [facility] [address]-64 37.5-325 MG Orally bid prn Active 1 tab(s) Lexapro [facility] [address]-23 20 mg Orally Once a day Active 1 tab(s) Lyrica [facility] [address]-68 50 MG Orally daily Active 1 capsule Leflunomide [facility] [address]-88 20 MG Orally Once a day Active 1 tablet Flomax [facility] [address]-23 0.4 MG Orally Once a day Active 1 tab(s) Multi Vitamins Unknown 0 Oral Active 1 tab Omeprazole [facility] [address]-88 20 MG Orally Once a day Active 1 capsule Alendronate Sodium [facility] [address]-13 70 MG Orally Once a week Mar 22, 2016 Active 1 tablet Flexeril [facility] 86901586249 10MG Active TAKE 1 TABLET 3 TIMES A DAY Tylenol [facility] [address]-24 325 MG Orally every 6 hrs Active 1 tablet as needed Z50-Wrxonf [facility] 55831-15289 1 MG Orally Active Unknown Social History Social History Element Qualifiers Date Reported Smoking status: . Are you a: Never Smoker Mar 22, 2016 alcohol no. Mar 22, 2016 Vital Signs Date/Time: Mar 22, 2016 Height 65 in Blood Pressure Diastolic 73 mm Hg Blood Pressure Systolic 112 mm Hg Weight 235.8 lbs Summary Purpose eClinicalWorks Submission
--- OUTSIDE RECORDS SUMMARY | 2018-04-25 06:22 | XMS REPORT ---
Author Author Shania Stock Organization eClinicalWorks Address Unknown Phone Unavailable Care Team Providers Care Latex Dipper Name Role Phone Shania Stock CP Unavailable [...] 2015 routine [facility]ology Clinic May 04, 2015 New Refill Request [facility]ology Clinic Dec 20, 2015 follow up [facility] Nov 25, 2014 schedule mri [facility] Mar 01, 2015 Follow up [facility]umatology Clinic June 01, 2015 Problems Problem Type Condition ICD-9 Code Onset Dates Condition Status Problem Rheumatoid arthritis 714.0 Active Assessment Low back pain M54.5 Active Problem Rheumatoid arthritis of multiple sites without rheumatoid factor M06.09 Active Medications Medication Code System Code Instructions Start Date End Date Status Dosage Lyrica MEDISPAN [address]-97 50 MG Orally 1 tab twice daily Active 1 capsule Social History Social History Element Qualifiers Date Reported Smoking status: . Are you a: Never Smoker Dec 01, 2015 alcohol no. Dec 01, 2015 Summary Purpose eClinicalWorks Submission
--- OUTSIDE RECORDS SUMMARY | 2018-04-25 06:22 | XMS REPORT ---
Author Author Shania Stock Organization e[employer]Works Address Unknown Phone Unavailable Care Team Providers Care Machine Rope Maker Name Role Phone Shania Stock CP Unavailable Encounters Encounter Location Date new med follow [...] Clinic September 16, 2014 Not happy with Jua nAntonio Stock [facility] Oct 05, 2014 My mistake re Lyrica RX [facility] Dec 21, 2015 Lyrica refill req [facility] Nov [...]
--- OUTSIDE RECORDS SUMMARY | 2018-04-25 06:22 | XMS REPORT ---
Author Author Shania Stock Organization eClinicalWorks Address Unknown Phone Unavailable Care Team Providers Care Intervention Analyst Name Role Phone Shania Stock CP Unavailable [...] [facility] Stock [facility] Oct 05, 2014 Lyrica refill req [facility] Nov 22, [...] Date End Date Status Dosage Lyrica MEDISPAN [address]-48 50 MG Orally 1 tab twice daily Active 1 capsule Social History Social History Element Qualifiers Date Reported Smoking status: . Are you a: Never Smoker Dec 01, 2015 alcohol no. Dec 01, 2015 Summary Purpose eClinicalWorks Submission
--- OUTSIDE RECORDS SUMMARY | 2018-04-25 06:22 | XMS REPORT ---
Author Author Shania Stock Organization eClinicalWorks Address Unknown Phone Unavailable Care Team Providers Care Historic Clothing And Costume Maker Name Role Phone Shania Stock CP [...] Clinic September 16, 2014 Not happy with Lyiris - JULIO Stock [facility] Oct 05, 2014 My mistake re Lyrica RX [facility] Dec 21, 2015 discuss medication [facility] Feb 03, 2016 6wk follow up/labs [facility] Mar 22, 2016 Follow up/lab results [facility] Apr 20, 2016 Lyrica refill req [facility] Nov [...] Instructions Start Date End Date Status Dosage [facility] [address]-93 10 MG Orally Once a day Active 1 tablet at bedtime Tylenol [facility] [address]-77 325 MG Orally every 6 hrs Active 1 tablet as needed Tramadol-Acetaminophen [facility] [address]-88 37.5-325 MG Orally bid prn Active 1 tab(s) Lexapro [facility] [address]-31 20 mg Orally Once a day Active 1 tab(s) Omeprazole [facility] [address]-89 20 MG Orally Once a day Active 1 capsule Alendronate Sodium [facility] [address]-12 70 MG Orally Once a week Active 1 tablet Orencia [facility] 62331754614 125 MG/ML Active INJECT 1 ML (125 MG) SUBCUTANEOUSLY ONCE A WEEK. REFRIGERATE. ALLOW SYRINGE TO WARM TO ROOM TEMPERATURE FOR 30 MIN PRIOR TO INJECTION. Flomax [facility] [address]-54 0.4 MG Orally Once a day Active 1 tab(s) Multi Vitamins Unknown 0 Oral Active 1 tab Lyrica [facility] [address]-38 50 MG Orally daily Active 1 capsule Leflunomide [facility] [address]-18 20 MG Orally Once a day Active 1 tablet V81-Kbpkyx [facility] 75478-94881 1 MG Orally Active Unknown Flexeril [facility] 48320752718 10MG orally daily prn Active take 1 tablet 3 times a day Social History Social History Element Qualifiers Date Reported Smoking status: . Are you a: Never Smoker Apr 20, 2016 alcohol no. Apr 20, 2016 Vital Signs Date/Time: Apr 20, 2016 Height 65 in Blood Pressure Diastolic 82 mm Hg Blood Pressure Systolic 134 mm Hg Weight 236.4 lbs Summary Purpose eClinicalWorks Submission
--- OUTSIDE RECORDS SUMMARY | 2018-04-25 06:22 | XMS REPORT ---
Author Author Shania Stock Organization eClinicalWorks Address Unknown Phone Unavailable Care Team Providers Care Director Compliance Name Role Phone Shania Stock CP Unavailable [...] 16, 2014 Not happy with Juan Antonio - JULIO Stock [facility] Oct 05, 2014 My mistake re Lyrica RX [facility] Dec 21, 2015 discuss medication [facility] Feb 03, 2016 Lyrica refill req [facility] Nov 22, 2015 Follow up 3 Month [facility] Dec 01, 2015 New Refill Request [facility]ology Clinic Dec 20, 2015 Request of Lyrica RX [facility] Dec 21, 2015 Problems Problem Type Condition ICD-9 Code Onset Dates Condition Status Assessment Low back pain M54.5 Active Assessment Other chronic pain G89.29 Active Problem Rheumatoid arthritis 714.0 Active Assessment Rheumatoid arthritis of multiple sites without rheumatoid factor M06.09 Active Problem Rheumatoid arthritis of multiple sites without rheumatoid factor M06.09 Active Assessment Osteoarthritis of multiple joints M15.9 Active Assessment Osteoarthritis of knees, bilateral M17.0 Active Assessment Menopausal and perimenopausal disorder N95.9 Active Assessment High risk medication use Z79.899 Active Medications Medication Code System Code Instructions Start Date End Date Status Dosage Leflunomide [facility] [address]-13 20 MG Orally Once a day Feb 03, 2016 July 02, 2016 Active 1 tablet Tramadol-Acetaminophen [facility] [address]-69 37.5-325 MG Orally bid prn Active 1 tab(s) Flexeril [facility] 38170318002 10MG orally daily prn Active take 1 tablet 3 times a day Ambien [facility] [address]-38 5 MG Orally Once a day Active 1 tablet at bedtime Lyrica [facility] [address]-01 50 MG Orally daily Active [address] [facility] 01524033264 10MG Active TAKE 1 TABLET 3 TIMES A DAY Plaquenil [facility] 41344775771 200MG Active TAKE 2 TABLETS ONCE DAILY Flomax [facility] [address]-38 0.4 MG Orally Once a day Active 1 tab(s) Lexapro [facility] [address]-90 20 mg Orally Once a day Active 1 tab(s) Tylenol [facility] [address]-93 325 MG Orally every 6 hrs Active 1 tablet as needed Omeprazole [facility] [address]-74 20 MG Orally Once a day Active 1 capsule Multi Vitamins Unknown 0 Oral Active [address] [facility] 51828076343 125 MG/ML Active INJECT 1 ML (125 MG) SUBCUTANEOUSLY ONCE A WEEK. REFRIGERATE. ALLOW SYRINGE TO WARM TO ROOM TEMPERATURE FOR 30 MIN PRIOR TO INJECTION. [facility] [address]-78 125 MG/ML Subcutaneous once weekly Feb 03, 2016 Inactive 1 ml P78-J[address]pho [facility] 80696-96732 1 MG Orally Active Unknown Social History Social History Element Qualifiers Date Reported Smoking status: . Are you a: Never Smoker Feb 03, 2016 alcohol no. Feb 03, 2016 Vital Signs Date/Time: Feb 03, 2016 Weight 241.6 lbs Height 65 in Summary Purpose eClinicalWorks Submission
[2018-04-25 10:00] VITALS: BP 107/66
--- NOTE | 2018-04-25 10:52 | Operative Report ---
DATE OF PROCEDURE: April 25, 2018 PROCEDURES PERFORMED 1. Esophagogastroduodenoscopy. 2. Colonoscopy. MEDICATIONS: Preop medications consisted of general anesthesia. EGD: Using the Olympus Hortensia video gastroscope, it was inserted into the patient's oropharynx, advanced to the hypopharynx and down to the esophagus. The mucosa found in the esophageal body was normal. There was evidence of reflux esophagitis just above a small hiatal hernia. Measurements here are 36 to 37 to 38. Biopsies were obtained to rule out a Giron esophagus. The stomach was entered. There was of a postoperative stomach with a gastric sleeve present. This appears to be patent. As we got down toward the body and antrum, we picked up gastritis in the antrum without ulcerations. Biopsy was obtained looking for H. pylori. No other bleeding lesions were encountered. The pylorus was entered, and the duodenal bulb and postbulbar duodenum were followed and found to be within normal limits. No lesions were found. The endoscope was then withdrawn back up into the stomach and then back up into the esophagus, hypopharynx, oropharynx and out of the patient's mouth, and the procedure was ended. In conclusion, we have findings of gastritis down in the antrum, a hiatal hernia and reflux esophagitis. COLONOSCOPY: After normal digital rectal examination, an Olympus Hortensia video colonoscope was inserted to the rectum and advanced without difficulty to the level of the cecum. Photo documentation was obtained. The colon was studied from that level back down to the rectum. In the descending colon, 2 small 4-mm hyperplastic-appearing polyps were present and removed with hot biopsy forceps. Scattered diverticula were seen without evidence of diverticulitis. The colonoscope was withdrawn back down to the rectum, and internal hemorrhoids were noted. The colonoscope was withdrawn from the patient's rectum, and the procedure was ended. In conclusion, we have findings of 2 small colonic polyps, which were removed with hot biopsy forceps, diverticulosis and internal hemorrhoids. Job#: [id number]
== END | disposition home or self-care (01) ==
LOC: OR 06:16
PROVIDERS: ATTEND Internal Medicine Gastroenterology
DX: Z12.11 Encounter for screening for malignant neoplasm of colon (principal); K63.5 Polyp of colon; K29.70 Gastritis, unspecified, without bleeding; K25.9 Gastric ulcer, unspecified as acute or chronic, without hemorrhage or perforation; K22.70 Barrett's esophagus without dysplasia; K21.0 Gastro-esophageal reflux disease with esophagitis; K44.9 Diaphragmatic hernia without obstruction or gangrene; Z98.84 Bariatric surgery status; K57.30 Diverticulosis of large intestine without perforation or abscess without bleeding; K64.8 Other hemorrhoids; D50.9 Iron deficiency anemia, unspecified; M19.90 Unspecified osteoarthritis, unspecified site; I48.91 Unspecified atrial fibrillation; N20.0 Calculus of kidney; F41.9 Anxiety disorder, unspecified; Z88.6 Allergy status to analgesic agent; Z88.2 Allergy status to sulfonamides; Z88.8 Allergy status to other drugs, medicaments and biological substances; Z01.810 Encounter for preprocedural cardiovascular examination; Z01.812 Encounter for preprocedural laboratory examination; Z79.82 Long term (current) use of aspirin; Z68.39 Body mass index [BMI] 39.0-39.9, adult
CPT/HCPCS: 36415 ×2; 43239; 45384; 85025 ×2; 93005; J2001; J2250; J2704; J3490; 43235; 45378